=== PATIENT | female | born 1935 | race Caucasian/White ===

== ENCOUNTER → 2017-02-12 | Outpatient (REF) | payer MEDICARE ==
[~2017-02-12] MED LIST: /PREG50CA PO; /WARF25TA OR; /WARF25TA PO; /WARF5TA OR; ACET65TA OR; ASPI81TA83 OR; ASPI81TA85 PO; CELE1CAP4 PO; CIPR500T4 OR; COUM2.5T17 PO; LYRI75CA PO; MOBIC PO; MULT1TAB10 PO; PERC5TAB PO; PERC5TAB12 PO; PERC5TAB8 OR; PERC7.5T8 OR; PERCOCET PO; TYLE325T5 PO
[2017-02-12 18:07] LABS: BASO % 0.5 % (0.0-1.0); EOS # 0.1 K/mm3 (0.0-0.50); EOS % 1.9 % (0.0-3.0); LARGE UNSTAINED CELL # 0.1 K/mm3 (0.0-0.4); LARGE UNSTAINED CELL % 2.4 % (0.0-4.0); LYMPH # 1.9 K/mm3 (1.5-4.5); LYMPH % 32.6 % (24.0-44.0); MEAN CORPUSCULAR HEMOGLOBIN 32.1 pg (27.0-33.0); MEAN CORPUSCULAR VOLUME 97.2 fl (80.0-96.0); MONO # 0.4 K/mm3 (0.0-0.8); MONO % 6.6 % (0.0-5.0); PLATELET COUNT, AUTOMATED 209 k/mm3 (150-450); RED CELL DISTRIBUTION WIDTH 12.8 % (11.5-14.5); WHITE BLOOD COUNT 5.3 K/mm3 (4.0-10.0)
[2017-02-12 18:39] LABS: ALBUMIN 3.7 GM/DL (3.2-5.2); ALBUMIN/GLOBULIN RATIO 1.12 (1.00-1.93); ALKALINE PHOSPHATASE 89 U/L (45-117); ALT/SGPT 18 U/L (12-78); ANION GAP 5 MEQ/L (8-16); AST/SGOT 19 U/L (15-37); BILIRUBIN,TOTAL 0.4 MG/DL (0.2-1.0); BLOOD UREA NITROGEN 13 MG/DL (7-18); CALCIUM LEVEL 9.3 MG/DL (8.8-10.2); CARBON DIOXIDE LEVEL 32 MEQ/L (21-32); CHLORIDE LEVEL 104 MEQ/L (98-107); GLOMERULAR FILTRATION RATE > 60.0 (>32); GLUCOSE, FASTING 78 MG/DL (83-110); POTASSIUM SERUM 4.1 MEQ/L (3.5-5.1); SODIUM LEVEL 141 MEQ/L (136-145)
== END ==
LOC: M LABDRAW1 17:26
PROVIDERS: ATTEND Orthopaedic Surgery
DX: M16.11 Unilateral primary osteoarthritis, right hip (principal); Z79.899 Other long term (current) drug therapy

== ENCOUNTER → 2017-11-22 | Outpatient (CLI) | payer MEDICARE ==
[2017-11-22 10:40] LABS: HEMOGLOBIN 14.1 g/dl (12.0-15.5); MEAN CORPUSCULAR HEMOGLOBIN 32.3 pg (27.0-33.0); MEAN CORPUSCULAR HGB CONC 32.8 g/dl (32.0-36.5); MEAN CORPUSCULAR VOLUME 98.4 fl (80.0-96.0); PLATELET COUNT, AUTOMATED 236 10^3/uL (150-450); RED BLOOD COUNT 4.37 10^6/uL (4.00-5.40); RED CELL DISTRIBUTION WIDTH 13.6 % (11.5-14.5); WHITE BLOOD COUNT 6.4 10^3/uL (4.0-10.0)
[2017-11-22 10:49] LABS: INR 0.95; PROTHROMBIN TIME 12.8 SECONDS (12.4-14.5)
[2017-11-22 11:00] LABS: ERYTHROCYTE SEDIMENTATION RATE 13 mm/hr (0-30)
[2017-11-22 11:23] LABS: ALBUMIN 3.5 GM/DL (3.2-5.2); ALBUMIN/GLOBULIN RATIO 0.97 (1.00-1.93); ALKALINE PHOSPHATASE 93 U/L (45-117); ALT/SGPT 17 U/L (12-78); ANION GAP 2 MEQ/L (8-16); AST/SGOT 15 U/L (7-37); BILIRUBIN,TOTAL 0.3 MG/DL (0.2-1.0); BLOOD UREA NITROGEN 10 MG/DL (7-18); CALCIUM LEVEL 8.8 MG/DL (8.8-10.2); CARBON DIOXIDE LEVEL 33 MEQ/L (21-32); CHLORIDE LEVEL 106 MEQ/L (98-107); CREATININE FOR GFR 0.75 MG/DL (0.55-1.30); GLOMERULAR FILTRATION RATE > 60.0 (>32); GLUCOSE, FASTING 89 MG/DL (70-100); POTASSIUM SERUM 4.6 MEQ/L (3.5-5.1); SODIUM LEVEL 141 MEQ/L (136-145); TOTAL PROTEIN 7.1 GM/DL (6.4-8.2)
== END ==
LOC: M ADMPAT 08:49
DX: Z01.812 Encounter for preprocedural laboratory examination (principal); M16.11 Unilateral primary osteoarthritis, right hip; Z20.1 Contact with and (suspected) exposure to tuberculosis
CPT/HCPCS: 71046

== ENCOUNTER 2017-12-13 05:47 | Inpatient (IN) | payer MEDICARE ==
[2017-12-13] MEDS ORDERED: LIDOCAINE 1% MDV 20ML VIAL SQ (06:00)
[2017-12-13] MEDS: LR 1,000 ML IV ×3 (06:31→11:45)
[2017-12-13] MEDS ORDERED: fentaNYL 100 MCG/2 ML INJECTION (J3010) As Ordered (07:01)
[2017-12-13] MEDS ORDERED: PROPOFOL 200 MG/20 ML VIAL As Ordered ×2 (07:01→10:59)
[2017-12-13] MEDS ORDERED: MIDAZOLAM INJ 2 MG/2 ML VIAL (J2250) As Ordered (07:01)
[2017-12-13] MEDS ORDERED: BUPIVACAINE/DEXTROSE 0.75% 2 ML AMP As Ordered (07:06)
[2017-12-13] MEDS: EPINEPHrine INJ 1 MG/ML 1ML AMP As Ordered (07:20)
[2017-12-13] MEDS ORDERED: ePHEDrine SULFATE 25 MG/5 ML(5MG/ML) SYRINGE As Ordered (10:16)
[2017-12-13] MEDS: ceFAZolin 1GM INJ (J0690 PER 500MG) As Ordered (10:30)
[2017-12-13] MEDS: TRANEXAMIC ACID 100 MG/ML 10ML VIAL As Ordered (10:31)
[2017-12-13] MEDS ORDERED: PHENYLephrine HCL 500 MCG/5 ML (100MCG/ML) SYRINGE (J2370) As Ordered (10:33)
[2017-12-13] MEDS ORDERED: MORPHINE 1MG/ML IN 0.9% NACL 100ML IV BAG As Ordered (11:33)
[2017-12-13] MEDS ORDERED: NALBUPHINE HCL 10 MG/ML AMP (J2300) IV (11:45)
[2017-12-13] MEDS ORDERED: NALOXONE INJ 0.4 MG/1 ML VIAL (J2310) IV (11:45)
[2017-12-13] MEDS: MORPHINE 1MG/ML IN 0.9% NACL 100ML IV BAG IV (11:45)
[2017-12-13] MEDS ORDERED: ACETAMINOPHEN TAB 650MG DOSE (2X325MG) PO (11:45)
[2017-12-13] MEDS ORDERED: fentaNYL 100 MCG/2 ML INJECTION (J3010) IV (11:45)
[2017-12-13] MEDS ORDERED: ONDANSETRON 4MG/2ML VIAL (J2405) IV ×2 (11:45)
[2017-12-13] MEDS ORDERED: FLEET ENEMA PR (11:45)
[2017-12-13] MEDS ORDERED: PERCOCET 5MG/325MG TAB PO (11:45)
[2017-12-13] MEDS ORDERED: EPIDURAL/PCA KEYS XX (11:45)
[2017-12-13] MEDS ORDERED: diphenhydrAMINE INJ 50MG/ML VIAL (J1200) IV (11:45)
[2017-12-14] MEDS: LR 1,000 ML IV (01:03)
[2017-12-14] MEDS: ONDANSETRON 4MG/2ML VIAL (J2405) IV (03:37)
[2017-12-14] MEDS ORDERED: ONDANSETRON 4 MG TAB (S0181) PO (07:00)
[2017-12-14] MEDS ORDERED: PERCOCET 5MG/325MG TAB PO (07:00)
[2017-12-14 07:04] LABS: HEMATOCRIT 38.1 % (36.0-47.0); HEMOGLOBIN 12.9 g/dl (12.0-15.5); MEAN CORPUSCULAR HEMOGLOBIN 32.3 pg (27.0-33.0); MEAN CORPUSCULAR HGB CONC 33.9 g/dl (32.0-36.5); MEAN CORPUSCULAR VOLUME 95.3 fl (80.0-96.0); PLATELET COUNT, AUTOMATED 232 10^3/uL (150-450); RED CELL DISTRIBUTION WIDTH 13.2 % (11.5-14.5); WHITE BLOOD COUNT 11.9 10^3/uL (4.0-10.0)
[2017-12-14] MEDS: APIXABAN 2.5 MG TAB (ELIQUIS) PO ×2 (09:49→20:18)
[2017-12-14] MEDS: MOM 30ML SUSPENSION UDC PO (09:49)
[2017-12-14] MEDS: MULTIVITAMINS/MINERALS THERAP 1 TAB PO (09:50)
[2017-12-14] MEDS: SENOKOT S TAB PO ×2 (09:51→20:18)
[2017-12-14] MEDS: PERCOCET 5MG/325MG TAB PO (09:51)
[2017-12-14] MEDS: diltiaZEM **CD** 180 MG CAP PO (09:52)
[2017-12-14] MEDS: PANTOPRAZOLE 40MG TAB (PROTONIX) PO (09:52)
[2017-12-14] MEDS: ASPIRIN 81 MG ENTERIC TAB PO (09:52)
[2017-12-14] MEDS ORDERED: ACETAMINOPHEN 500 MG TAB PO (12:00)
[2017-12-14] MEDS: traMADol 50 MG TAB PO (16:10)
[2017-12-14] MEDS ORDERED: RIVAROXABAN 10 MG TAB (XARELTO) PO (18:00)
[2017-12-14] MEDS: ACETAMINOPHEN 500 MG TAB PO ×2 (18:21→23:29)
[2017-12-15] MEDS: ACETAMINOPHEN 500 MG TAB PO ×4 (05:52→23:57)
[2017-12-15 06:42] LABS: HEMATOCRIT 37.3 % (36.0-47.0); HEMOGLOBIN 12.3 g/dl (12.0-15.5); MEAN CORPUSCULAR HEMOGLOBIN 31.8 pg (27.0-33.0); MEAN CORPUSCULAR VOLUME 96.4 fl (80.0-96.0); PLATELET COUNT, AUTOMATED 209 10^3/uL (150-450); RED BLOOD COUNT 3.87 10^6/uL (4.00-5.40); RED CELL DISTRIBUTION WIDTH 13.3 % (11.5-14.5); WHITE BLOOD COUNT 12.6 10^3/uL (4.0-10.0)
[2017-12-15 07:00] LABS: ANION GAP 8 MEQ/L (8-16); BLOOD UREA NITROGEN 14 MG/DL (7-18); CALCIUM LEVEL 8.5 MG/DL (8.8-10.2); CARBON DIOXIDE LEVEL 30 MEQ/L (21-32); CHLORIDE LEVEL 101 MEQ/L (98-107); CREATININE FOR GFR 0.82 MG/DL (0.55-1.30); GLOMERULAR FILTRATION RATE > 60.0 (>32); GLUCOSE, FASTING 114 MG/DL (70-100); POTASSIUM SERUM 3.7 MEQ/L (3.5-5.1); SODIUM LEVEL 139 MEQ/L (136-145)
[2017-12-15] MEDS: SENOKOT S TAB PO ×2 (09:46→20:36)
[2017-12-15] MEDS: APIXABAN 2.5 MG TAB (ELIQUIS) PO ×2 (09:46→20:36)
[2017-12-15] MEDS: ASPIRIN 81 MG ENTERIC TAB PO (09:46)
[2017-12-15] MEDS: MOM 30ML SUSPENSION UDC PO (09:46)
[2017-12-15] MEDS: PANTOPRAZOLE 40MG TAB (PROTONIX) PO (09:46)
[2017-12-15] MEDS: MULTIVITAMINS/MINERALS THERAP 1 TAB PO (09:46)
[2017-12-15] MEDS: diltiaZEM **CD** 180 MG CAP PO (09:46)
[2017-12-15] MEDS: traMADol 50 MG TAB PO (09:47)
[2017-12-16] MEDS: ACETAMINOPHEN 500 MG TAB PO ×4 (05:14→23:45)
[2017-12-16] MEDS: PANTOPRAZOLE 40MG TAB (PROTONIX) PO (10:16)
[2017-12-16] MEDS: SENOKOT S TAB PO ×2 (10:16→20:07)
[2017-12-16] MEDS: MOM 30ML SUSPENSION UDC PO (10:16)
[2017-12-16] MEDS: ASPIRIN 81 MG ENTERIC TAB PO (10:16)
[2017-12-16] MEDS: traMADol 50 MG TAB PO (10:16)
[2017-12-16] MEDS: diltiaZEM **CD** 180 MG CAP PO (10:17)
[2017-12-16] MEDS: MULTIVITAMINS/MINERALS THERAP 1 TAB PO (10:17)
[2017-12-16] MEDS: APIXABAN 2.5 MG TAB (ELIQUIS) PO ×2 (10:17→20:07)
[2017-12-17] MEDS: traMADol 50 MG TAB PO (00:12)
[2017-12-17] MEDS: ACETAMINOPHEN 500 MG TAB PO ×2 (05:16→11:27)
[2017-12-17 06:22] LABS: HEMATOCRIT 32.6 % (36.0-47.0); HEMOGLOBIN 10.8 g/dl (12.0-15.5); MEAN CORPUSCULAR HEMOGLOBIN 31.8 pg (27.0-33.0); MEAN CORPUSCULAR HGB CONC 33.1 g/dl (32.0-36.5); MEAN CORPUSCULAR VOLUME 95.9 fl (80.0-96.0); PLATELET COUNT, AUTOMATED 238 10^3/uL (150-450); RED CELL DISTRIBUTION WIDTH 13.3 % (11.5-14.5); WHITE BLOOD COUNT 7.4 10^3/uL (4.0-10.0)
[2017-12-17 06:39] LABS: ANION GAP 6 MEQ/L (8-16); BLOOD UREA NITROGEN 19 MG/DL (7-18); CALCIUM LEVEL 8.3 MG/DL (8.8-10.2); CARBON DIOXIDE LEVEL 31 MEQ/L (21-32); CHLORIDE LEVEL 102 MEQ/L (98-107); CREATININE FOR GFR 0.67 MG/DL (0.55-1.30); GLOMERULAR FILTRATION RATE > 60.0 (>32); GLUCOSE, FASTING 102 MG/DL (70-100); POTASSIUM SERUM 4.1 MEQ/L (3.5-5.1); SODIUM LEVEL 139 MEQ/L (136-145)
[2017-12-17] MEDS: PANTOPRAZOLE 40MG TAB (PROTONIX) PO (08:56)
[2017-12-17] MEDS: ASPIRIN 81 MG ENTERIC TAB PO (08:56)
[2017-12-17] MEDS: APIXABAN 2.5 MG TAB (ELIQUIS) PO (08:56)
[2017-12-17] MEDS: diltiaZEM **CD** 180 MG CAP PO (08:57)
[2017-12-17] MEDS: MOM 30ML SUSPENSION UDC PO (08:57)
[2017-12-17] MEDS: SENOKOT S TAB PO (08:57)
[2017-12-17] MEDS: MULTIVITAMINS/MINERALS THERAP 1 TAB PO (08:57)
== END 2017-12-17 16:40 | disposition home or self-care (01) | DRG 470 ==
LOC: M OR 05:47 → M MS5PR 12:30
PROC: 0SR90JA Replacement of Right Hip Joint with Synthetic Substitute, Uncemented, Open Approach (ICD-10-PCS; principal; 2017-12-13 07:30)
DX: M16.11 Unilateral primary osteoarthritis, right hip (principal); I48.91 Unspecified atrial fibrillation; K21.9 Gastro-esophageal reflux disease without esophagitis; Z88.2 Allergy status to sulfonamides; Z91.048 Other nonmedicinal substance allergy status; Z79.899 Other long term (current) drug therapy; Z96.653 Presence of artificial knee joint, bilateral; Z79.82 Long term (current) use of aspirin

== ENCOUNTER 2020-08-15 10:23 | Emergency (ER) | payer MEDICARE ==
[~2020-08-15] VITALS: Ht 160 cm; Wt 63.6 kg
[~2020-08-15 10:23] MED LIST changes: -/PREG50CA PO; -/WARF25TA OR; -/WARF25TA PO; -/WARF5TA OR; -ASPI81TA85 PO; +ASPI81TA86 PO; +CART180C3; +COUM1TAB17 OR; +COUM1TAB18 OR; +COUM1TAB18 PO; +ELIQ2.5T PO; +ENOX80IN3; +FIBE625T22 PO; +FISH1000 PO; +LYRI50CA PO; +OXYC1TAB23 PO; +PANT40TA29; -PERCOCET PO; +TRAM50TA2 PO; +ULTR50TA8 PO
--- OUTSIDE RECORDS SUMMARY | 2020-08-15 10:32 | CCD | Continuity of Care Document ---
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 Onset: Other osteoporosis without current pathological fracture Janay Perrin FNP-BC Onset: 04/04/2018 Anxiety Sarina Nieves PA Onset: 06/12 Gastroesophageal reflux disease Sarina Nieves PA Onset: 06/12/2019 Paroxysmal atrial fibrillation Sarina Nieves PA O nset: 03/01/2020 Dementia Sarina Nieves PA Onset: 06/24 Social History Type Date Description Comments Sex Unknown ETOH Use Denies alcohol use Tobacco Use Start: Unknown Patient has never smoked Recreational Drug Use Never Used Drugs Allergies, Adverse Reactions, Alerts Active Allergies Reaction Severity Comments Date Sulfa Drugs Urticaria 12/11/2010 Adhesives adhesives tapes rash 12/11/2010 Medications Active Medications SIG Qnty Indications Ordering Provide r Date Eliquis 2.5mg Tablets take one tablet by mouth in the Am and one tablet by mouth in the PM 30tabs Augusto Akins D.O., FAAFP 06/24/2020 Metoprolol Succinate ER 25mg Tablets ER 24HR one tab by mouth daily 30tabs Delbert Jerez, FAAFP 04/09/[address] 1 by mouth once daily 30caps Augusto Akins D.O., FAAFP Fluoxetine HCL 10mg Capsules take one capsule by mouth every day 30caps Augusto Akins D.O. , FAAFP 03/17/2019 Tylenol Extra Strength For Arthritis Maria Luisa n 500mg Tablets prn use Unknown Calcium Citrate 333mg Tablets 1 tab by mouth once a day with magnesium and zinc Unknown Medications Administered in Office Medication SIG Qnty Indications Ordering Provider Date Injection (SC)/(Im) Injection Janay Cohen FNP- 03/01/2019 Injection (SC)/(Im) Injection Janay Cohen FNPBg 05/26/2017 Injection (SC)/(Im) Injection Susie Summers, [facility] 03/25/2011 Immunizations CPT Code Status Date Vaccine Lot # 27101 Given 03/01/2019 Influenza Virus Vaccine, Quadrivalent, Slit Virus, Im Use 3Y & Up [id number] 93317 Given 03/15/2018 Influenza Virus Vaccine, Quadrivalent, Slit Virus, Im Use 3Y & Up [id number] 57639 Given 03/25/2011 Influenza Vaccin e (Fluzone) 3Yrs Of Age Or Older Medicare Plans 12542 Given 03/25/2011 Influenza Virus Vac. Split Virus Individuals 3 Years And Above [id number] Vital Signs Date Vital Result Comment 06/24/2020 2:08pm BP Systolic 138 mmHg BP Diastolic 72 mmHg Body Temperature 97.8 F Heart Rate 57 /min Respiratory Rate 18 /min Height 62 inches 5'2" Weight 141.00 lb [place] Body Weight 110 lb BMI (Body Mass Index) 25.8 kg/m2 O2 % BldC Oximetry 97 % (AT Rest), (Room Air ) 05/13/2020 10:47am BP Systolic 138 mmHg BP Diastolic 60 mmHg Body Temperature 97.7 F Heart Rate 61 /min Respiratory Rate 17 /min Height 62 inches 5'2" Weight 150.00 lb [place] Body Weight 110 lb BMI (Body Mass Index) 27.4 kg/m2 O2 % BldC Oximetry 96 % (AT Rest), (Room Air ) Results Test Acquired Date Facility Test Result H/L Range Note Laboratory test finding 01/04/2020 [facility] TSH 0.656 ulU/mL 0.60 - 4.8 CBC 01/04/2020 [facility] WBC 5.2 10E3/uL 4.1 - 10.9 1 RBC 4.30 10E6/uL 4.20 - 6.30 HGB 13.3 g/dL 12.0 - 18.0 HCT 41.0 % 37.0 - 51.0 MCV 95.3 fL 80.0 - 97.0 MCH 30.9 pg 26.0 - 32.0 MCHC 32.4 g/dL 31.0 - 36.0 PLT 218 10E3/uL 140 - 440 RDW-CV 15.1 % High 11.5 - 14.5 Lym% 28.0 % 10.0 - 58.5 Neut% 58.7 % 37.0 - 92.0 MXD% 13.3 % 0.1 - 24.0 Lym# 1.5 10E3/uL 0.6 - 4.1 Neut# 3.0 % 2.0 - 7.8 MXD# 0.7 10E3/uL 0.0 - 1.8 MPV 10.6 fL 9.0 - 13.0 CMP 01/04/2020 [facility] Glu 87 mg/dL 70 - 110 BUN 15 mg/dL 8 - 23 Creat 0.7 mg/dL 0.5 - 1.0 BUN/Creatinine Ratio 20.3 CALC Na 139 mmol/L 136 - 145 K 4.4 mmol/L 3.5 - 5.1 CL 103.9 mmol/L 98.0 - 107.0 Co2 24.8 mmol/L 22.0 - 29.0 CA 9.6 mg/dL 8.6 - 10.2 TP 6.8 g/dL 6.6 - 8.7 Alb 4.1 g/dL 3.4 - 4.8 A/G Ratio 1.5 CALC Globulin 2.7 CALC Alp 93.5 U/L 35 - 129 Alt (SGPT) 9 U/L 0 - 41 Ast (Sgot) 16 U/L 0 - 40 Tbili 0.41 mg/dL 0.0 - 1.2 Osmolality-Calculated 277.4 CALC Anion Gap 15 mmol/L eGFR 92 # Calc 2 eGFR Non-Afr. Welsh 80 # Calc 3 1 NORMAL RANGES Age WBC RBC HGB HCT MCV PLT Adult M 4.1-10.9 4.20-6.30 12.0-18.0 37.0-51.0 80-97 140-440 Adult F 4.1-10.9 4.04-5.48 12.0-18.0 37.0-51.0 80-97 140-440 0 -1 Yr 5.0-20.0 3.9-5.9 15-18 MV: 44 MV: 91 MV: 277 2-9 Yr. 6.0-17.0 3.8-5.4 11-13 MV: 37 MV: 78 MV: 300 10 Yrs. 5.0-13.0 3.8-5.4 12-15 MV: 39 MV: 80 MV: 250 NOTE: * FOR ADULT BLACK MALES AND FEMALES, NORMAL WBC IS 2.9-7.7 K/ML * FOR ADULT BLACK MALES AND FEMALES, NORMAL RBC,HGB, AND HCT IS 5% LESS SOURCE FOR DATA: [employer] 1800 OPERATION MANUAL( AUTOMATED BLOOD COUNTS AND DIFF.) APPENDIX B-3 CHRONIC KIDNEY DISEASE STAGING PER NKF: MALE GFR INTERPRETATION: 20-49 YRS: >60 mL/min Normal 50-59 YRS: >56 mL/min Normal 60-69 YRS: >49 mL/min Normal 70-79 YRS: >42 mL/min Normal 80 and above >35 mL/min Normal FEMALE GRF INTERPRETATION: 20-39 YRS: >60 mL/min Normal 40-49 YRS: >58 mL/min Normal 50-59 YRS: >51 mL/min Normal 60-69 YRS: >45 mL/min Normal 70-79 YRS: >39 mL/min Normal 80 and above >32 mL/min Normal 2 CKD-EPI 3 CKD-EPI Procedures Date Code Description Status 06/24/2020 42514 Electrocardiogram Complete Compl eted 05/13/2020 44874 Electrocardiogram Complete Compl eted 04/09/2020 68535 Electrocardiogram Complete Compl eted 01/04/2020 54052 Electrocardiogram Complete Compl eted Medical Devices Description No Information Available Encounters Type Date Location Provider Dx Diagnosis Office Visit 06/24/2020 2:00p [place] [facility] Peace Nieves PA I48.20 Chronic atrial fibrillation, unspecified F02.80 Dementia in oth diseases [facility] elswhr w/o behavrl disturb Office Visit 05/13/2020 10:40a [facility] [facility] Peace Nieves PA I48.20 Chronic atrial fibrillation, unspecified R42 Dizziness and giddiness Office Visit 04/09/2020 11:00a [place] [facility] Rajesh Nieves PA Z00.01 Encounter for general adult medical exam w abnormal findings I48.20 Chronic atrial fibrillation, unspecified K21.9 Gastro-esophageal reflux dis ease without esophagitis Office Visit 01/04/2020 2:00p [place] [facility] Rajesh Nieves PA I48.20 Chronic atrial fibrillation, unspecified Assessments Date Code Description Provider 06/24/2020 I48.20 Chronic atrial fibrillation, uns pecified aSrina Nieves PA 06/24/2020 F02.80 Dementia Shola Nieves PA 05/13/2020 I48.20 Chronic atrial fibrillation, uns pecified Sarina Nieves PA 05/13/2020 R42 Dizziness Shola Nieves PA 04/09/2020 Z00.01 Encounter for genera l adult medical examination with abnormal findings Sarina Nieves PA 04/09/2020 I48.20 Chronic atrial fibrillation, uns pecified Sarina Nieves PA 04/09/2020 K21.9 Gastro-esophageal reflux disease without esophagitis Sarina Nieves PA 01/04/2020 I48.20 Chronic atrial fibrillation, uns pecified Sarina Nieves PA Plan of Treatment Future Appointment(s):* 07/08/2020 1:30 pm - Sarina Nieves PA at [facility] Functional Status Description No Information Available Mental Status Description No Information Available Referrals Refer to Reason for Referral Status Appt Date Chivo De Guzman M.D. eval and treat chronic a fib. not symptomati c. Sent 01/23/[address] [place] [address] [phone]
--- OUTSIDE RECORDS SUMMARY | 2020-08-15 10:32 | CCD | Continuity of Care Document ---
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 Onset: Other osteoporosis without current pathological fracture Janay Perrin FNP-BC Onset: 04/04/2018 Anxiety Sarina Nieves PA Onset: 06/12 Gastroesophageal reflux disease Sarina Nieves PA Onset: 06/12/2019 Paroxysmal atrial fibrillation Sarina Nieves PA O nset: 03/01/2020 Social History Type Date Description Comments Sex [...] one tab by mouth daily 30tabs Delbert Jerez., FAAFP 04/09/[address] 1 by mouth once daily 90caps Delbert Jerez.O., FAAFP Fluoxetine HCL 10mg Capsules take one [...] Provider Date Injection (SC)/(Im) Injection Janay Cohen [facility] 03/01/2019 Injection (SC)/(Im) Injection Janay Cohen [facility] 05/26/2017 Injection (SC)/(Im) Injection Susie Summers, [facility] 03/25/2011 Immunizations CPT Code Status Date Vaccine Lot # [id number] Given 03/01/2019 Influenza Virus Vaccine, Quadrivalent, Slit Virus, Im Use 3Y & Up [id number] 89417 Given 03/15/2018 Influenza Virus Vaccine, Quadrivalent, Slit Virus, Im Use 3Y & Up [id number] 34370 Given 03/25/2011 Influenza Vaccin e (Fluzone) 3Yrs Of Age Or Older Medicare Plans 05555 Given 03/25/2011 Influenza Virus Vac. Split Virus Individuals 3 Years And Above [id number] Vital Signs Date Vital Result Comment 06/24/2020 2:08pm BP Systolic 138 mmHg BP Diastolic 72 mmHg Body Temperature 97.8 F Heart Rate 57 /min Respiratory Rate 18 /min Height 62 inches 5'2" Weight 141.00 lb [place] Body Weight 110 lb BMI (Body Mass Index) 25.8 kg/m2 O2 % BldC Oximetry 97 % (AT Rest), (Room Air ) 05/13/2020 10:47am BP Systolic 138 mmHg BP Diastolic 60 mmHg Body Temperature 97.7 F Heart Rate 61 /min Respiratory Rate 17 /min Height 62 inches 5'2" Weight 150.00 lb [place] Body Weight 110 lb BMI (Body Mass [...] eGFR 92 # Calc 2 eGFR Non-Afr. Fijian 80 # Calc 3 1 NORMAL RANGES [...] HCT IS 5% LESS SOURCE FOR DATA: [employer] 1800 OPERATION MANUAL( AUTOMATED BLOOD COUNTS AND [...] 3 CKD-EPI Procedures Date Code Description Status 05/13/2020 98818 Electrocardiogram Complete Compl eted 04/09/2020 74992 Electrocardiogram Complete Compl eted 01/04/2020 95385 Electrocardiogram Complete Compl eted Medical Devices Description No Information Available Encounters Type Date Location Provider Dx Diagnosis Office Visit 05/13/2020 10:40a [place] [facility] Peace Nieves PA I48.20 Chronic atrial fibrillation, unspecified R42 Dizziness and giddiness Office Visit 04/09/2020 11:00a [place] [facility] Rajesh Nieves PA Z00.01 Encounter for general adult medical exam w abnormal findings I48.20 Chronic atrial fibrillation, unspecified K21.9 Gastro-esophageal reflux dis ease without esophagitis Office Visit 01/04/2020 2:00p [place] [facility] Rajesh Nieves PA I48.20 Chronic atrial fibrillation, unspecified Assessments Date Code Description Provider 05/13/2020 I48.20 Chronic atrial fibrillation, uns pecified [...] pecified Sarina Nieves PA Plan of Treatment No Information Available Functional Status Description No Information Available Mental Status Description No Information Available Referrals Refer to Reason for Referral Status Appt Date Chivo De Guzman M.D. eval and treat chronic a fib. not symptomati c. Sent 01/23/[address] [place] [address] [phone]
--- OUTSIDE RECORDS SUMMARY | 2020-08-15 10:32 | CCD | Continuity of Care Document ---
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 , FAAFP 03/17/2019 Eliquis 5mg Tablets take one tablet by mouth twice a day 60tabs Augusto Akins D.O., FAAFP 1 07/17/2017 Multivitamin Adult Tablets 1 by mouth every day OTC Janay Cohen FNP-BC 06/07/201 8 Vitamin D 2000Unit Capsules 1 by mouth once a day Unknown Tylenol Extra Strength For Arthritis Maria Luisa n 500mg Tablets prn use Unknown HM Super Vitamin B12 2500mcg Chewt abs 1 PO qd Unknown Medications Administered in Office Medication SIG Qnty Indications Ordering Provider Date Injection (SC)/(Im) Injection Janay Cohen [facility] 03/01/2019 Injection (SC)/(Im) Injection Janay Cohen [facility] 05/26/2017 Injection (SC)/(Im) Injection Susie Summers, [facility] 03/25/2011 Immunizations CPT Code Status Date Vaccine Lot # 72658 Given 03/01/2019 Influenza Virus Vaccine, Quadrivalent, Slit Virus, Im Use 3Y & Up [id number] 75473 Given 03/15/2018 Influenza Virus Vaccine, Quadrivalent, Slit Virus, Im Use 3Y & Up [id number] 36102 Given 03/25/2011 Influenza Vaccin e (Fluzone) 3Yrs Of Age Or Older Medicare Plans 57625 Given 03/25/2011 Influenza Virus Vac. Split Virus Individuals 3 Years And Above [id number] Vital Signs Date Vital Result Comment 05/13/2020 10:47am BP Systolic 138 mmHg BP Diastolic 60 mmHg Body Temperature 97.7 F Heart Rate 61 /min Respiratory Rate 17 /min Height 62 inches 5'2" Weight 150.00 lb [place] Body Weight 110 lb BMI (Body Mass Index) 27.4 kg/m2 O2 % BldC Oximetry 96 % (AT Rest), (Room Air ) 04/09/2020 10:56am BP Systolic 124 mmHg BP Diastolic 88 mmHg Body Temperature 97.3 F Heart Rate 92 /min Respiratory Rate 18 /min Height 62 inches 5'2" Weight 148.00 lb [place] Body Weight 110 lb BMI (Body Mass Index) 27.1 kg/m2 O2 % BldC Oximetry 92 % Results Test Acquired Date Facility Test Result [...] eGFR 92 # Calc 2 eGFR Non-Afr. [place] 80 # Calc 3 1 NORMAL RANGES [...] HCT IS 5% LESS SOURCE FOR DATA: [employer] 1800 OPERATION MANUAL( AUTOMATED BLOOD COUNTS AND [...] CKD-EPI Procedures Date Code Description Status 05/13/2020 61802 Electrocardiogram Complete Compl eted 04/09/2020 88658 Electrocardiogram Complete Compl eted 01/04/2020 29626 Electrocardiogram Complete Compl eted Medical Devices Description No Information Available Encounters Type Date Location Provider Dx Diagnosis Office Visit 05/13/2020 10:40a [facility] Peace Nieves PA I48.20 Chronic atrial fibrillation, unspecified R42 Dizziness and giddiness Office Visit 04/09/2020 11:00a [facility] Rajesh Nieves PA Z00.01 Encounter for general adult medical exam w abnormal findings I48.20 Chronic atrial fibrillation, unspecified K21.9 Gastro-esophageal reflux dis ease without esophagitis Office Visit 01/04/2020 2:00p [facility] Rajesh Nieves PA I48.20 Chronic atrial fibrillation, [...] Nieves PA Plan of Treatment Future Appointment(s):* 06/17/2020 10:40 am - Sraina Nieves PA at [facility] Functional Status Description No Information Available Mental Status Description No Information Available Referrals Refer to Reason for Referral Status Appt Date Chivo De Guzman M.D. eval and treat chronic a fib. not symptomati c. Sent 01/23/[address] [place] [address] [phone]
--- OUTSIDE RECORDS SUMMARY | 2020-08-15 10:32 | CCD | Continuity of Care Document ---
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 Split Virus Individuals 3 Years And Above [id number] Vital Signs Date Vital Result Comment 07/08/2020 1:45pm BP Systolic 126 mmHg BP Diastolic 72 mmHg Body Temperature 97.5 F Heart Rate 73 /min Respiratory Rate 16 /min Height 62 inches 5'2" Weight 146.00 lb [place] Body Weight 110 lb BMI (Body Mass Index) 26.7 kg/m2 O2 % BldC Oximetry 96 % (AT Rest), (Room Air ) 06/24/2020 2:08pm BP Systolic 138 mmHg BP Diastolic 72 mmHg Body Temperature 97.8 F Heart Rate 57 /min Respiratory Rate 18 /min Height 62 inches 5'2" Weight 141.00 lb [place] Body Weight 110 lb BMI (Body Mass Index) 25.8 kg/m2 O2 % BldC Oximetry 97 % (AT Rest), (Room Air ) Results Description No Information Available Procedures Date Code Description Status 06/24/2020 39206 Electrocardiogram Complete Compl eted 05/13/2020 78750 Electrocardiogram Complete Compl eted 04/09/2020 44593 Electrocardiogram Complete Compl eted Medical Devices Description No Information Available Encounters Type Date Location Provider Dx Diagnosis Office Visit 07/08/2020 1:30p [place] [facility] Barraclough, Samanth a M, PA I48.20 Chronic atrial fibrillation, unspecified F02.80 Dementia in oth diseases [facility] ssd elswhr w/o behavrl disturb Office Visit 06/24/2020 2:00p [place] [facility] Peace Nieves PA I48.20 Chronic atrial fibrillation, unspecified F02.80 Dementia in oth diseases [facility] ssd elswhr w/o behavrl disturb Office Visit 05/13/2020 10:40a [place] [facility] Peace Nieves PA I48.20 Chronic atrial fibrillation, unspecified R42 Dizziness and giddiness Office Visit 04/09/2020 11:00a [place] [facility] Rajesh Nieves PA Z00.01 Encounter for general adult medical exam w abnormal findings I48.20 Chronic atrial fibrillation, unspecified K21.9 Gastro-esophageal reflux dis ease without esophagitis Assessments Date Code Description Provider 07/08/2020 I48.20 Chronic atrial fibrillation, uns pecified Sarina Nieves PA 07/08/2020 F02.80 Dementia Shola Nieves PA 06/24/2020 I48.20 Chronic atrial fibrillation, uns pecified Sarina Nieves PA 06/24/2020 F02.80 Dementia Shola Nieves PA 05/13/2020 I48.20 Chronic atrial fibrillation, uns pecified Sarina Nieves PA 05/13/2020 R42 Dizziness Shola Nieves PA 04/09/2020 Z00.01 Encounter for genera l adult medical examination with abnormal findings Sarina Nieves PA 04/09/2020 I48.20 Chronic atrial fibrillation, uns pecified Sarina Nieves PA 04/09/2020 K21.9 Gastro-esophageal reflux disease without esophagitis Sarina Nieves PA Plan of Treatment No Information Available Functional Status Description No Information Available Mental Status Description No Information Available Referrals Description No Information Available
--- OUTSIDE RECORDS SUMMARY | 2020-08-15 10:33 | CCD ---
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 Name Role Phone Keily GUTIÉRREZ ORTHODONTIST Unavailable Unavailable Keily GUTIÉRREZ ORTHODONTIST Unavailable Unavailable Keliy GUTIÉRREZ ORTHODONTIST Unavailable Unavailable Keily GUTIÉRREZ ORTHODONTIST Unavailable Unavailable Keily GUTIÉRREZ ORTHODONTIST Unavailable Unavailable Keily GUTIÉRREZ ORTHODONTIST Unavailable Unavailable Keily GUTIÉRREZ ORTHODONTIST Unavailable Unavailable Keily GUTIÉRREZ ORTHODONTIST Unavailable Unavailable Keily GUTIÉRREZ ORTHODONTIST Unavailable Unavailable Keily GUTIÉRREZ ORTHODONTIST Unavailable Unavailable Keily GUTIÉRREZ ORTHODONTIST Unavailable Unavailable GUTIÉRREZKeily Grider ORTHODONTIST Unavailable Unavailable Keily GUTIÉRREZ ORTHODONTIST Unavailable Unavailable GUTIÉRREZKeily Grider ORTHODONTIST Unavailable Unavailable Keily GUTIÉRREZ ORTHODONTIST Unavailable Unavailable Keily GUTIÉRREZ ORTHODONTIST Unavailable Unavailable Keily GUTIÉRREZ ORTHODONTIST Unavailable Unavailable Keily GUTIÉRREZ ORTHODONTIST Unavailable Unavailable Keily GUTIÉRREZ ORTHODONTIST Unavailable Unavailable Keily GUTIÉRREZ ORTHODONTIST Unavailable Unavailable Keily GUTIÉRREZ ORTHODONTIST Unavailable Unavailable Keily GUTIÉRREZ ORTHODONTIST Unavailable Unavailable Keily GUTIÉRREZ ORTHODONTIST Unavailable Unavailable Keily GUTIÉRREZ ORTHODONTIST Unavailable Unavailable Keily GUTIÉRREZ ORTHODONTIST Unavailable Unavailable GUTIÉRREZ, M MEIR ORTHODONTIST Unavailable Unavailable GUTIÉRREZ, M MEIR ORTHODONTIST Unavailable Unavailable GUTIÉRREZ, M MEIR ORTHODONTIST Unavailable Unavailable GUTIÉRREZ, M MEIR ORTHODONTIST Unavailable Unavailable GUTIÉRREZ, M MIER ORTHODONTIST Unavailable Unavailable GUTIÉRREZ, M MEIR ORTHODONTIST Unavailable Unavailable GUTIÉRREZ, M MEIR ORTHODONTIST Unavailable Unavailable GUTIÉRREZ, M MEIR ORTHODONTIST Unavailable Unavailable GUTIÉRREZ, M MEIR ORTHODONTIST Unavailable Unavailable GUTIÉRREZ, M MEIR ORTHODONTIST Unavailable Unavailable GUTIÉRREZ, M MEIR ORTHODONTIST Unavailable Unavailable GUTIÉRREZ, M MEIR ORTHODONTIST Unavailable Unavailable GUTIÉRREZ, M MEIR ORTHODONTIST Unavailable Unavailable GUTIÉRREZ, M MEIR ORTHODONTIST Unavailable Unavailable GUTIÉRREZ, M MEIR ORTHODONTIST Unavailable Unavailable GUTIÉRREZ, M MEIR ORTHODONTIST Unavailable Unavailable GUTIÉRREZ, M MEIR ORTHODONTIST Unavailable Unavailable GUTIÉRREZ, M MEIR ORTHODONTIST Unavailable Unavailable GUTIÉRREZ, M MEIR ORTHODONTIST Unavailable Unavailable GUTIÉRREZ, M MEIR ORTHODONTIST Unavailable Unavailable GUTIÉRREZ, M MEIR ORTHODONTIST Unavailable Unavailable GUTIÉRREZ, M MEIR ORTHODONTIST Unavailable Unavailable GUTIÉRREZ, M MEIR ORTHODONTIST Unavailable Unavailable GUTIÉRREZ, M MEIR ORTHODONTIST Unavailable Unavailable GUTIÉRREZ, M MEIR ORTHODONTIST Unavailable Unavailable GUTIÉRREZ, M MEIR ORTHODONTIST Unavailable Unavailable GUTIÉRREZ, M MEIR ORTHODONTIST Unavailable Unavailable GUTIÉRREZ, M MEIR ORTHODONTIST Unavailable Unavailable GUTIÉRREZ, M MEIR ORTHODONTIST Unavailable Unavailable GUTIÉRREZ, M MEIR ORTHODONTIST Unavailable Unavailable GUTIÉRREZ, M MEIR ORTHODONTIST Unavailable Unavailable GUTIÉRREZ, M MEIR ORTHODONTIST Unavailable Unavailable GUTIÉRREZ, M MEIR ORTHODONTIST Unavailable Unavailable Carissa GUZMAN MD Unavailable Unavailable Carissa GUZMAN MD Unavailable Unavailable Carissa GUZMAN MD Unavailable Unavailable Carissa GUZMAN MD Unavailable Unavailable Carissa GUZMAN MD Unavailable Unavailable Carissa GUZMAN MD Unavailable Unavailable Carissa GUZMAN MD Unavailable Unavailable Carissa GUZMAN MD Unavailable Unavailable Carissa GUZMAN MD Unavailable Unavailable Carissa GUZMAN MD Unavailable Unavailable Carissa GUZMAN MD Unavailable Unavailable Carissa GUZMAN MD Unavailable Unavailable Carissa GUZMAN MD Unavailable Unavailable Barraclough, Sarina PA Unavailable Unavailable Barraclough, Sarina PA Unavailable Unavailable Barraclough, Sarina PA Unavailable Unavailable Barraclough, Sarina PA Unavailable Unavailable Barraclough, Sarina PA Unavailable Unavailable Barraclough, Sarina PA Unavailable Unavailable Delbert Young JRlie MD Unavailable Unavailable Hector JR, D Angelina LANDA Unavailable Unavailable Hector JR, D Angelina LANDA Unavailable Unavailable Hector JR, D Angelina LANDA Unavailable Unavailable Hector JR, D Angelina LANDA Unavailable Unavailable Hector JR, D Angelina LANDA Unavailable Unavailable Hector JR, D Angelina LANDA Unavailable Unavailable Hector JR, D Angleina LANDA Unavailable Unavailable Hector JR, D Angelina LANDA Unavailable Unavailable Hector JR, D Angelina LANDA Unavailable Unavailable Hector JR, D Angelina LANDA Unavailable Unavailable Hector JR, D Angelina LANDA Unavailable Unavailable Hector JR, D Angelina LANDA Unavailable Unavailable Hector JR, D Angelina LANDA Unavailable Unavailable Hector JR, D Angelina LANDA Unavailable Unavailable Hector JR, D Angelina LANDA Unavailable Unavailable Hector JR, D Angelina LANDA Unavailable Unavailable Hector JR, D Angelina LANDA Unavailable Unavailable Hector JR, D Angelina LANDA Unavailable Unavailable Hector JR, D Angelina LANDA Unavailable Unavailable Hector JR, D Angelina LANDA Unavailable Unavailable Hector JR, D Angelina LANDA Unavailable Unavailable Hector JR, D Angelina LANDA Unavailable Unavailable Hector JR, D Angelina LANDA Unavailable Unavailable Hector JR, D Angelina LANDA Unavailable Unavailable Hector JR, D Angelina LANDA Unavailable Unavailable Hector JR, D Angelina LANDA Unavailable Unavailable Hector JR, D Angelina LANDA Unavailable Unavailable Hector JR, D Angelina LANDA Unavailable Unavailable Hector JR, D Angelina LANDA Unavailable Unavailable Hector JR, D Angelina LANDA Unavailable Unavailable Hector JR, D Angelina LANDA Unavailable Unavailable Hector JR, D Angelina LANDA Unavailable Unavailable Hector JR, D Angelina LANDA Unavailable Unavailable Hector JR, D Angelina LANDA Unavailable Unavailable Hector JR, D Angelina LANDA Unavailable Unavailable Hector JR, D Angelina LANDA Unavailable Unavailable Hector JR, D Angelina LANDA Unavailable Unavailable Hector JR, D Angelina LANDA Unavailable Unavailable Hector JR, D Angelina LANDA Unavailable Unavailable Hector JR, D Angelina LANDA Unavailable Unavailable Hector JR, D Angleina LANDA Unavailable Unavailable Hector JR, D Angelina LANDA Unavailable Unavailable Hector JR, D Angelina LANDA Unavailable Unavailable Hector JR, D Angelina LANDA Unavailable Unavailable Hector JR, D Angelina LANDA Unavailable Unavailable Hector JR, D Angelina LANDA Unavailable Unavailable Hector JR, D Angelina LANDA Unavailable Unavailable Hector JR, D Angelina LANDA Unavailable Unavailable Hector JR, D Angelina LANDA Unavailable Unavailable Hector JR, D Angelina LANDA Unavailable Unavailable Hector JR, D Angelina LANDA Unavailable Unavailable Hector JR, D Angelina LANDA Unavailable Unavailable Hector JR, D Angelina LANDA Unavailable Unavailable Hector JR, D Angelina LANDA Unavailable Unavailable Hector JR, D Angelina LANDA Unavailable Unavailable Hector JR, D Angelina LANDA Unavailable Unavailable Hector JR, D Angelina LANDA Unavailable Unavailable Hector JR, D Angelina LANDA Unavailable Unavailable Hector JR, D Angelina LANDA Unavailable Unavailable Hector JR, D Angelina LANDA Unavailable Unavailable Hector JR, D Angelina LANDA Unavailable Unavailable Hector JR, D Angelina LANDA Unavailable Unavailable Hector JR, D Angelina LANDA Unavailable Unavailable Carissa GUZMAN MD Unavailable Unavailable Carissa GUZMAN MD Unavailable Unavailable Carissa GUZMAN MD Unavailable Unavailable Carissa GUZMAN MD Unavailable Unavailable Carissa GUZMAN MD Unavailable Unavailable Carissa GUZMAN MD Unavailable Unavailable Carissa GUZMAN MD Unavailable Unavailable Carissa GUZMAN MD Unavailable Unavailable Carissa GUZMAN MD Unavailable Unavailable Carissa GUZMAN MD Unavailable Unavailable Carissa GUZMAN MD Unavailable Unavailable Carissa GUZMAN MD Unavailable Unavailable Carissa GUZMAN MD Unavailable Unavailable Re-disclosure Warning The records that you are about to access may contain information from federally-assisted alcohol or drug abuse programs. If such information is present, then the following federally mandated warning applies: This information has been disclosed to you from records protected by federal confidentiality rules (42 CFR part 2). The federal rules prohibit you from making any further disclosure of this information unless further disclosure is expressly permitted by the written consent of the person to whom it pertains or as otherwise permitted by 42 CFR part 2. A general authorization for the release of medical or other information is NOT sufficient for this purpose. The Federal rules restrict any use of the information to criminally investigate or prosecute any alcohol or drug abuse patient.The records that you are about to access may contain highly sensitive health information, the redisclosure of which is protected by Article 27-F of the [facility] Public Health law. If you continue you may have access to information: Regarding HIV / AIDS; Provided by facilities licensed or operated by the [facility] Office of Mental Health; or Provided by the [facility] Office for People With Developmental Disabilities. If such information is present, then the following [facility] mandated warning applies: This information has been disclosed to you from confidential records which are protected by state law. State law prohibits you from making any further disclosure of this information without the specific written consent of the person to whom it pertains, or as otherwise permitted by law. Any unauthorized further disclosure in violation of state law may result in a fine or mcfp sentence or both. A general authorization for the release of medical or other information is NOT sufficient authorization for further disc losure. Allergies and Adverse Reactions Type Description Substance Reaction Status Data Source(s ) ENVIRONMENTAL adhesive tape adhesive tape RASH [facility] Drug allergy TRAMADOL TRAMADOL MAKES HER GO CRAZY COMBATIVE [facility] Family History Family Member Name Family Member Gender Family Member Status Date o f Status Description Data Source(s) Unknown Female Problem [facility] ([facility]) Unknown Female Problem [facility] ([facility]) Unknown Female Problem [facility] ([facility]) Unknown Female Problem [facility] ([facility]) Encounters Encounter Providers Location Date Indications Data Source(s ) Outpatient Attender: Angelina Lealsultant: MEIR VILLEGAS NP 08/10/2020 08:40:00 AM EST - 08/10/2020 09:40:00 AM [facility] Patient discharged. Outpatient Attender: Angelina Mckeonant: MEIR VILLEGAS NP 08/08/2020 02:02:42 PM EST - 08/15/2020 09:26:00 AM [facility] Patient discharged. Outpatient Attender: Angelina Mckeonant: MEIR VILLEGAS NP 08/08/2020 01:58:08 PM EST - 08/12/2020 12:33:00 PM EST [facility] Patient discharged. Outpatient Attender: Sarina Clarkekyra FINLEY [place] Kadeem ce 07/08/2020 12:30:00 PM EST [facility] ([facility] Outpatient Attender: Sarina Clarkekyra FINLEY [place] K[place] ce 06/24/2020 01:00:00 PM EST [facility] ([facility] Outpatient Attender: Sarina Lizbeth FINLEY [place] Kadeem ce 05/13/2020 09:40:00 AM EST [facility] ([facility] Outpatient Attender: Sarina Lizbeth FINLEY [place] Kadeem ce 04/09/2020 11:00:00 AM EDT [facility] ([facility] Outpatient Attender: JESSIE GUZMAN MDConsultant: MEIR Grider NP 01/31/2020 01:04:00 PM EDT - 01/31/2020 01:04:00 PM EDT [facility] Outpatient Attender: [facility]ra [facility] 01/04/2020 02:00:00 PM EDT [facility] ([facility] Outpatient Attender: JESSIE GUZMAN MDConsultant: MEIR Grider NP 08/02/2019 12:46:00 PM EST - 08/02/2019 12:46:00 PM EST [facility] Outpatient Attender: JESSIE GUZMAN MD [facility] 08/02/2019 1 2:00:00 PM EST [facility] ([facility]) Medications Medication Brand Name Start Date Product Form Dose Route Admi nistrative Instructions Pharmacy Instructions Status Indications Reaction Description Data Source(s) apixaban 2.5 MG Oral Tablet [Eliquis] Eliquis 06/24/2020 12:00:00 AM EST ORAL active [facility] ([facility] Omeprazole 20 MG Delayed Release Oral Capsule Omeprazole 04/09/2020 12:00:00 AM EDT ORAL active [facility] ([facility] 24 HR metoprolol succinate 25 MG Extended Release Oral Tablet Metoprolol Succinate ER 04/09/2020 12:00:00 AM EDT ORAL active [facility] ([facility] 24 HR Diltiazem Hydrochloride 180 MG Extended Release Oral Capsule Diltiazem HCL ER Coated Beads 09/11/2019 12:00:00 AM EDT ORAL active [facility] ([facility] Insurance Providers Payer name Policy type / Coverage type Policy ID Covered republican ID Covered republican's relationship to linares Policy Linares Plan Information MEDICARE COMPLETE [id number] SP [id number] [employer] [facility] MEDICARE O/P [id number] 18 [id number] MEDICARE PART A [facility] [id number] 18 [id number] MEDICARE PART A [facility] UNAVAILABLE 18 UNAVAILABLE [facility] [id number] 18 [id number] [facility] MEDICARE COMPLETE -PHYS [id number] 18 [id number] MEDICARE PART A -O/P [id number] 18 [id number] [employer] [facility] MEDICARE O/P [id number] 18 [id number] [facility] ([facility]) Commercial [id number] Self [id number] [employer] () Workers Compensation [id number] Self [id number] Special Funds-Dew () Workers Compensation [id number] Self [id number] [facility] Medigap Part B [id number] Self [id number] MEDICARE [id number] SP [id number] A MEDICARE COMPLETE-[facility] O [id number] S [id number] MEDICARE COMPLETE [id number] SP [id number] MEDICARE COMPLETE [id number] SP [id number] MEDICARE COMPLETE-[facility] O [id number] S [id number] [facility] ([facility]) Commercial [id number] Self [id number] [facility] Medigap Part B Self [employer] ([facility]) Commercial Self SPECIAL FUNDS O [id number] S [id number] [employer]) Workers Compensation Self Special Funds-Dew () Workers Compensation Self WORKMENS COMP AND NO FAULT OTHER -O/P [id number] 18 [id number] SPECIAL FUNDS CONSERVATION-DEW [id number] SP [id number] SPECIAL FUNDS CONSERVATION-DEW [id number] SP [id number] Problems, Conditions, and Diagnoses Code Display Name Description Problem Type Effective Dates Data Source(s) 48372171 Dementia Dementia Problem 06/24/2020 12:00:00 AM ES T [facility] ([facility] [id number] Paroxysmal atrial fibrillation Paroxysmal atrial fibri llation Problem 03/01/2020 12:00:00 AM EDT [facility] ([facility] ) [id number] Encounter for other preprocedural examin ation Encounter for other preprocedural examination Diagnosis 08/10/2020 08:40:00 AM [facility] Z1152 ENCOUNTER FOR SCREENING FOR COVID-19 ENCOUNTER F OR SCREENING FOR COVID-19 Diagnosis 08/10/2020 08:40:00 AM [facility] R99 Ill-defined and unknown cause of mortali ty Ill-defined and unknown cause of mortality Diagnosis 01/31/2020 01:04:00 PM EDT [facility] [id number] Personal history of other malignant neop lasm of skin Personal history of other malignant neoplasm of skin Diagnosis 08/02/2019 12:46:00 PM [facility] Surgeries/Procedures Procedure Description Date Indications Data Source(s) Electrocardiogram Complete 06/24/2020 12:00:00 AM EST [facility] ([facility] Electrocardiogram Complete 05/13/2020 12:00:00 AM EST [facility] ([facility] Electrocardiogram Complete 04/09/2020 12:00:00 AM EDT [facility] ([facility] Electrocardiogram Complete 01/04/2020 12:00:00 AM EDT [facility] ([facility] Results ID Date Data Source [id number] 08/10/2020 07:05:00 AM EST [facility] Name Value Range Interpretation Code Description Data Cindi rce(s) Supporting Document(s) SARS coronavirus 2 RNA Not Detected [facility] [place] This lab was ordered by [facility] anil and reported by [facility]. ID Date Data Source [id number] 08/11/2020 01:13:00 PM [facility] Name Value Range Interpretation Code Description Data Cindi rce(s) Supporting Document(s) SARS-CoV-2, SAURABH Not Detected Not Detected [facility] This nucleic acid amplification test was developed and its performancecharacteristics determined by [employer]. Nucleic acidamplification tests include RT-PCR and TMA. This test has not beenFDA cleared or approved. This test has been authorized by FDA underan Emergency Use Authorization (EUA). This test is only authorizedfor the duration of time the declaration that circumstances existjustifying the authorization of the emergency use of in vitrodiagnostic tests for detection of SARS-CoV-2 virus and/or diagnosisof COVID-19 infection under section 564(b)(1) of the Act, 21 U.S.C.360bbb-3(b) (1), unless the authorization is terminated or revokedsooner.When diagnostic testing is negative, the possibility of a falsenegative result should be considered in the context of a patient'srecent exposures and the presence of clinical signs and symptomsconsistent with COVID- 19. An individual without symptoms of COVID-19and who is not shedding SARS-CoV-2 virus would expect to have anegative (not detected) result in this assay. ID Date Data Source [id number] 01/04/2020 02:10:00 PM EDT [facility] ([facility] Name Value Range Interpretation Code Description Data Cindi rce(s) Supporting Document(s) Glu 87 mg/dL 70-110 [facility] NORMAL RANGES Age WBC RBC HGB HCT [...] HCT IS 5% LESS SOURCE FOR DATA: Retewi 1800 OPERATION MANUAL( AUTOMATED BLOOD COUNTS AND [...] Normal 80 and above >32 mL/min Normal BUN 15 mg/dL 8- [facility] ([facility] NORMAL RANGES Age WBC RBC HGB HCT [...] HCT IS 5% LESS SOURCE FOR DATA: [employer]i 1800 OPERATION MANUAL( AUTOMATED BLOOD COUNTS AND [...] Normal 80 and above >32 mL/min Normal Creat 0.7 mg/dL 0.5-1.0 [facility] ([facility] NORMAL RANGES Age WBC RBC HGB HCT [...] HCT IS 5% LESS SOURCE FOR DATA: [employer]i 1800 OPERATION MANUAL( AUTOMATED BLOOD COUNTS AND [...] Normal 80 and above >32 mL/min Normal Na 139 mmol/L 136-145 [facility] NORMAL RANGES Age WBC RBC HGB HCT [...] HCT IS 5% LESS SOURCE FOR DATA: [employer]i 1800 OPERATION MANUAL( AUTOMATED BLOOD COUNTS AND [...] Normal 80 and above >32 mL/min Normal BUN/Creatinine Ratio 20.[address] [facility] ([facility] NORMAL RANGES Age WBC RBC HGB HCT [...] HCT IS 5% LESS SOURCE FOR DATA: [employer]i 1800 OPERATION MANUAL( AUTOMATED BLOOD COUNTS AND [...] Normal 80 and above >32 mL/min Normal Co2 24.8 mmol/L 22.0-29.0 [facility] ([facility] NORMAL RANGES Age WBC RBC HGB HCT [...] HCT IS 5% LESS SOURCE FOR DATA: [employer]i 1800 OPERATION MANUAL( AUTOMATED BLOOD COUNTS AND [...] Normal 80 and above >32 mL/min Normal K 4.4 mmol/L 3.5-5.1 [facility] ([facility] NORMAL RANGES Age WBC RBC HGB HCT [...] HCT IS 5% LESS SOURCE FOR DATA: [employer] DYN 1800 OPERATION MANUAL( AUTOMATED BLOOD COUNTS AND [...] Normal 80 and above >32 mL/min Normal CL 103.9 mmol/L 98.0-107.0 [facility] ([facility] NORMAL RANGES Age WBC RBC HGB HCT [...] HCT IS 5% LESS SOURCE FOR DATA: [employer]i 1800 OPERATION MANUAL( AUTOMATED BLOOD COUNTS AND [...] Normal 80 and above >32 mL/min Normal TP 6.8 g/dL 6.6-8.7 [facility] NORMAL RANGES Age WBC RBC HGB HCT [...] HCT IS 5% LESS SOURCE FOR DATA: [employer]i 1800 OPERATION MANUAL( AUTOMATED BLOOD COUNTS AND [...] Normal 80 and above >32 mL/min Normal CA 9.6 mg/dL 8.6-10.2 [facility] NORMAL RANGES Age WBC RBC HGB HCT [...] HCT IS 5% LESS SOURCE FOR DATA: [employer]i 1800 OPERATION MANUAL( AUTOMATED BLOOD COUNTS AND [...] Normal 80 and above >32 mL/min Normal Alb 4.1 g/dL 3.4-4.8 [facility] NORMAL RANGES Age WBC RBC HGB HCT [...] HCT IS 5% LESS SOURCE FOR DATA: [employer]i 1800 OPERATION MANUAL( AUTOMATED BLOOD COUNTS AND [...] Normal 80 and above >32 mL/min Normal A/G Ratio 1.5 [facility] ([facility] NORMAL RANGES Age WBC RBC HGB HCT [...] HCT IS 5% LESS SOURCE FOR DATA: [employer]i 1800 OPERATION MANUAL( AUTOMATED BLOOD COUNTS AND [...] Normal 80 and above >32 mL/min Normal Alp 93.5 U/L 35-129 [facility] ([facility] NORMAL RANGES Age WBC RBC HGB HCT [...] HCT IS 5% LESS SOURCE FOR DATA: [employer] DYN 1800 OPERATION MANUAL( AUTOMATED BLOOD COUNTS AND [...] Normal 80 and above >32 mL/min Normal Globulin 2.7 [facility] ([facility] NORMAL RANGES Age WBC RBC HGB HCT [...] HCT IS 5% LESS SOURCE FOR DATA: Retewi 1800 OPERATION MANUAL( AUTOMATED BLOOD COUNTS AND [...] Normal 80 and above >32 mL/min Normal Ast (Sgot) 16 U/L 0-40 [facility] ([facility] NORMAL RANGES Age WBC RBC HGB HCT [...] HCT IS 5% LESS SOURCE FOR DATA: Retewi 1800 OPERATION MANUAL( AUTOMATED BLOOD COUNTS AND [...] Normal 80 and above >32 mL/min Normal Alt (SGPT) 9 U/L 0-41 [facility] ([facility] NORMAL RANGES Age WBC RBC HGB HCT [...] HCT IS 5% LESS SOURCE FOR DATA: Retewi 1800 OPERATION MANUAL( AUTOMATED BLOOD COUNTS AND [...] Normal 80 and above >32 mL/min Normal Tbili 0.41 mg/dL 0.0-1.2 [facility] NORMAL RANGES Age WBC RBC HGB HCT [...] HCT IS 5% LESS SOURCE FOR DATA: DANIEL DYN 1800 OPERATION MANUAL( AUTOMATED BLOOD COUNTS AND [...] Normal 80 and above >32 mL/min Normal Anion Gap 15 mmol/L [facility] NORMAL RANGES Age WBC RBC HGB HCT [...] HCT IS 5% LESS SOURCE FOR DATA: [employer]i 1800 OPERATION MANUAL( AUTOMATED BLOOD COUNTS AND [...] Normal 80 and above >32 mL/min Normal eGFR 92 # [facility] ( [facility] NORMAL RANGES Age WBC RBC HGB HCT [...] HCT IS 5% LESS SOURCE FOR DATA: [employer]ewi 1800 OPERATION MANUAL( AUTOMATED BLOOD COUNTS AND [...] Normal 80 and above >32 mL/min Normal Osmolality-Calculated 277.4 [facility] ([facility] NORMAL RANGES Age WBC RBC HGB HCT [...] HCT IS 5% LESS SOURCE FOR DATA: [employer]i 1800 OPERATION MANUAL( AUTOMATED BLOOD COUNTS AND [...] Normal 80 and above >32 mL/min Normal eGFR Non-Afr. [place] 80 # MEDENT ([facility] NORMAL RANGES Age WBC RBC HGB HCT [...] HCT IS 5% LESS SOURCE FOR DATA: [employer] 1800 OPERATION MANUAL( AUTOMATED BLOOD COUNTS AND [...] Normal 80 and above >32 mL/min Normal ID Date Data Source [id number] 01/04/2020 02:10:00 PM EDT MEDENT ([facility] Name Value Range Interpretation Code Description Data Cindi rce(s) Supporting Document(s) WBC 5.2 10E3/uL 4.1-10.9 FÉLIX ([facility] NORMAL RANGES Age WBC RBC HGB HCT [...] HCT IS 5% LESS SOURCE FOR DATA: [employer] 1800 OPERATION MANUAL( AUTOMATED BLOOD COUNTS AND [...] Normal 80 and above >32 mL/min Normal RBC 4.30 10E6/uL 4.20-6.30 FÉLIX ([facility] NORMAL RANGES Age WBC RBC HGB HCT [...] HCT IS 5% LESS SOURCE FOR DATA: [employer] 1800 OPERATION MANUAL( AUTOMATED BLOOD COUNTS AND [...] Normal 80 and above >32 mL/min Normal HGB 13.3 g/dL 12.0-18.0 [facility] ([facility] NORMAL RANGES Age WBC RBC HGB HCT [...] HCT IS 5% LESS SOURCE FOR DATA: [employer] 1800 OPERATION MANUAL( AUTOMATED BLOOD COUNTS AND [...] Normal 80 and above >32 mL/min Normal HCT 41.0 % 37.0-51.0 [facility] NORMAL RANGES Age WBC RBC HGB HCT [...] HCT IS 5% LESS SOURCE FOR DATA: [employer] 1800 OPERATION MANUAL( AUTOMATED BLOOD COUNTS AND [...] Normal 80 and above >32 mL/min Normal MCV 95.3 fL 80.0-97.0 [facility] ([facility] NORMAL RANGES Age WBC RBC HGB HCT [...] HCT IS 5% LESS SOURCE FOR DATA: DANIEL DYN 1800 OPERATION MANUAL( AUTOMATED BLOOD COUNTS AND [...] Normal 80 and above >32 mL/min Normal MCH 30.9 pg 26.0-32.0 [facility] NORMAL RANGES Age WBC RBC HGB HCT [...] HCT IS 5% LESS SOURCE FOR DATA: [employer] 1800 OPERATION MANUAL( AUTOMATED BLOOD COUNTS AND [...] Normal 80 and above >32 mL/min Normal MCHC 32.4 g/dL 31.0-36.0 [facility] ([facility] NORMAL RANGES Age WBC RBC HGB HCT [...] HCT IS 5% LESS SOURCE FOR DATA: [employer] 1800 OPERATION MANUAL( AUTOMATED BLOOD COUNTS AND [...] Normal 80 and above >32 mL/min Normal RDW-CV 15.1 % 11.5-14.5 Above high normal [facility] NORMAL RANGES Age WBC RBC HGB HCT [...] HCT IS 5% LESS SOURCE FOR DATA: [employer] 1800 OPERATION MANUAL( AUTOMATED BLOOD COUNTS AND [...] Normal 80 and above >32 mL/min Normal PLT 218 10E3/uL 140-440 [facility] ([facility] NORMAL RANGES Age WBC RBC HGB HCT [...] HCT IS 5% LESS SOURCE FOR DATA: [employer] 1800 OPERATION MANUAL( AUTOMATED BLOOD COUNTS AND [...] Normal 80 and above >32 mL/min Normal Lym% 28.0 % 10.0-58.5 [facility] ([facility] NORMAL RANGES Age WBC RBC HGB HCT [...] HCT IS 5% LESS SOURCE FOR DATA: [employer] 1800 OPERATION MANUAL( AUTOMATED BLOOD COUNTS AND [...] Normal 80 and above >32 mL/min Normal Lym# 1.5 10E3/uL 0.6-4.1 [facility] ([facility] NORMAL RANGES Age WBC RBC HGB HCT [...] HCT IS 5% LESS SOURCE FOR DATA: [employer] 1800 OPERATION MANUAL( AUTOMATED BLOOD COUNTS AND [...] Normal 80 and above >32 mL/min Normal MXD% 13.3 % 0.1-24.0 [facility] ([facility] NORMAL RANGES Age WBC RBC HGB HCT [...] HCT IS 5% LESS SOURCE FOR DATA: [employer] 1800 OPERATION MANUAL( AUTOMATED BLOOD COUNTS AND [...] Normal 80 and above >32 mL/min Normal Neut% 58.7 % 37.0-92.0 [facility] ([facility] NORMAL RANGES Age WBC RBC HGB HCT [...] HCT IS 5% LESS SOURCE FOR DATA: [employer] 1800 OPERATION MANUAL( AUTOMATED BLOOD COUNTS AND [...] Normal 80 and above >32 mL/min Normal MXD# 0.7 10E3/uL 0.0-1.8 [facility] ([facility] NORMAL RANGES Age WBC RBC HGB HCT [...] HCT IS 5% LESS SOURCE FOR DATA: [employer] DYN 1800 OPERATION MANUAL( AUTOMATED BLOOD COUNTS AND [...] Normal 80 and above >32 mL/min Normal MPV 10.6 fL 9.0-13.0 [facility] ([facility] NORMAL RANGES Age WBC RBC HGB HCT [...] HCT IS 5% LESS SOURCE FOR DATA: [employer] 1800 OPERATION MANUAL( AUTOMATED BLOOD COUNTS AND [...] Normal 80 and above >32 mL/min Normal Neut# 3.0 % 2.0-7.8 [facility] ([facility] NORMAL RANGES Age WBC RBC HGB HCT [...] HCT IS 5% LESS SOURCE FOR DATA: [employer] 1800 OPERATION MANUAL( AUTOMATED BLOOD COUNTS AND [...] Normal 80 and above >32 mL/min Normal ID Date Data Source [id number] 01/04/2020 02:10:00 PM EDT FÉLIX ([facility] Name Value Range Interpretation Code Description Data Cindi rce(s) Supporting Document(s) Thyrotropin [Units/volume] in Serum or Plasma 0.656 ulU/mL 0.60-4.8 FÉLIX ([facility] Procedure Vital Signs ID Date Data Source UNK Name Value Range Interpretation Code Description Data Source(s) Oxygen saturation in Arterial blood by Pulse oximetry 96 % 96 % FÉLIX ([facility] (AT Rest), (Room Air) Body mass index (BMI) [Ratio] 26.7 kg/m2 26.7 k g/m2 FÉLIX ([facility] [place] body weight 110 [lb_av] 110 [lb_av] CHRISTY T ([facility] Body weight 146.00 [lb_av] 146.00 [lb_av] MEDEN T ([facility] Body height 62 [in_i] 62 [in_i] [facility] ([facility] 5'2" Respiratory rate 16 /min 16 /min MEDENT ( [facility] Heart rate 73 /min 73 /min MEDENT ([facility] Body temperature 97.5 [degF] 97.5 [degF] MEDENT ([facility] Diastolic blood pressure 72 mm[Hg] 72 mm[Hg] MEDENT ([facility] Systolic blood pressure 126 mm[Hg] 126 mm[Hg] M EDENT ([facility] Oxygen saturation in Arterial blood by Pulse oximetry 97 % 97 % MEDENT ([facility] (AT [place]), (Room Air) Body mass index (BMI) [Ratio] 25.8 kg/m2 25.8 k g/m2 MEDENT ([facility] [place] body weight 110 [lb_av] 110 [lb_av] MEDEN T ([facility] Body weight 141.00 [lb_av] 141.00 [lb_av] MEDEN T ([facility] Body height 62 [in_i] 62 [in_i] MEDENT ([facility] 5'2" Respiratory rate 18 /min 18 /min MEDENT ( [facility] Heart rate 57 /min 57 /min MEDENT ([facility] Body temperature 97.8 [degF] 97.8 [degF] MEDENT ([facility] Diastolic blood pressure 72 mm[Hg] 72 mm[Hg] MEDENT ([facility] Systolic blood pressure 138 mm[Hg] 138 mm[Hg] M EDENT ([facility] Oxygen saturation in Arterial blood by Pulse oximetry 96 % 96 % MEDENT ([facility] ([place]), (Room Air) Body mass index (BMI) [Ratio] 27.4 kg/m2 27.4 k g/m2 MEDENT ([facility] [place] body weight 110 [lb_av] 110 [lb_av] MEDEN T ([facility] Body weight 150.00 [lb_av] 150.00 [lb_av] MEDEN T ([facility] Body height 62 [in_i] 62 [in_i] MEDENT ([facility] 5'2" Respiratory rate 17 /min 17 /min MEDENT ( [facility] Heart rate 61 /min 61 /min MEDENT ([facility] Body temperature 97.7 [degF] 97.7 [degF] MEDENT ([facility] Diastolic blood pressure 60 mm[Hg] 60 mm[Hg] MEDENT ([facility] Systolic blood pressure 138 mm[Hg] 138 mm[Hg] M EDENT ([facility] Oxygen saturation in Arterial blood by Pulse oximetry 92 % 92 % MEDENT ([facility] Body mass index (BMI) [Ratio] 27.1 kg/m2 27.1 k g/m2 MEDENT ([facility] [place] body weight 110 [lb_av] 110 [lb_av] MEDEN T ([facility] Body weight 148.00 [lb_av] 148.00 [lb_av] MEDEN T ([facility] Body height 62 [in_i] 62 [in_i] MEDENT ([facility] 5'2" Respiratory rate 18 /min 18 /min MEDENT ( [facility] Heart rate 92 /min 92 /min MEDENT ([facility] Body temperature 97.3 [degF] 97.3 [degF] MEDENT ([facility] Diastolic blood pressure 88 mm[Hg] 88 mm[Hg] MEDENT ([facility] Systolic blood pressure 124 mm[Hg] 124 mm[Hg] M EDENT ([facility] Oxygen saturation in Arterial blood by Pulse oximetry 98 % 98 % MEDENT ([facility] Body mass index (BMI) [Ratio] 30.4 kg/m2 30.4 k g/m2 MEDENT ([facility] [place] body weight 110 [lb_av] 110 [lb_av] MEDEN T ([facility] Body weight 166.00 [lb_av] 166.00 [lb_av] MEDEN T ([facility] Body height 62 [in_i] 62 [in_i] MEDENT ([facility] 5'2" Respiratory rate 16 /min 16 /min MEDENT ( [facility] Heart rate 74 /min 74 /min MEDENT ([facility] Body temperature 97.8 [degF] 97.8 [degF] MEDENT ([facility] Diastolic blood pressure 78 mm[Hg] 78 mm[Hg] MEDENT ([facility] Systolic blood pressure 126 mm[Hg] 126 mm[Hg] M EDENT ([facility] Body weight 75.298 kg 75.298 kg MEDENT ([facility]) Body weight 166.00 [lb_av] 166.00 [lb_av] MEDEN T ([facility]) Oxygen saturation in Arterial blood by Pulse oximetry 98 % 98 % MEDENT ([facility]) Body temperature 97.8 [degF] 97.8 [degF] MEDENT ([facility]) Heart rate 88 /min 88 /min MEDENT ([facility]) Diastolic blood pressure 86 mm[Hg] 86 mm[Hg] MEDENT ([facility]) Systolic blood pressure 138 mm[Hg] 138 mm[Hg] [facility] Oxygen saturation in Arterial blood by Pulse oximetry 97 % 97 % MEDENT ([facility] Body mass index (BMI) [Ratio] 30.4 kg/m2 30.4 k g/m2 MEDENT ([facility] Body weight 166.00 [lb_av] 166.00 [lb_av] MEDEN T ([facility] Body height 62 [in_i] 62 [in_i] MEDENT ([facility] 5'2" Respiratory rate 16 /min 16 /min FÉLIX ( [facility] Heart rate 98 /min 98 /min FÉLIX ([facility] Body temperature 98.6 [degF] 98.6 [degF] FÉLIX ([facility] Diastolic blood pressure 78 mm[Hg] 78 mm[Hg] FÉLIX ([facility] Systolic blood pressure 124 mm[Hg] 124 mm[Hg] M YANIQUE ([facility] ID Date Data Source [id number] 08/15/2020 10:11:05 AM EST [facility] Name Value Range Interpretation Code Description Data Source(s) WEIGHT RECORDED 146.00 pounds 146.00 pounds [facility] Height 63 Inches 063 Inches [facility]
--- OUTSIDE RECORDS SUMMARY | 2020-08-15 10:33 | CCD | Continuity of Care Document ---
Author Author Shaina NIEVES PA Organization Unknown Address [address] [place] [id number] Phone [phone] Problems Active Problems Provider Date Osteoporosis Susie [...] Provider Date Injection (SC)/(Im) Injection Janay Cohen [facility] 03/01/2019 Injection (SC)/(Im) Injection Janay Cohen [facility] 05/26/2017 Injection (SC)/(Im) Injection Susie Summers, [facility] 03/25/2011 Immunizations CPT Code Status Date Vaccine Lot # [id number] Given 03/01/2019 Influenza Virus Vaccine, Quadrivalent, Slit Virus, Im Use 3Y & Up [id number] Given 03/15/2018 Influenza Virus Vaccine, Quadrivalent, Slit Virus, Im Use 3Y & Up [id number] Given 03/25/2011 Influenza Vaccin e (Fluzone) 3Yrs Of Age Or Older Medicare Plans [id number] Given 03/25/2011 Influenza Virus Vac. Split Virus Individuals 3 Years And Above [id number] Vital Signs Date Vital Result Comment 05/13/2020 10:47am BP Systolic 138 mmHg BP Diastolic 60 mmHg Body Temperature 97.7 F Heart Rate 61 /min Respiratory Rate 17 /min Height 62 inches 5'2" Weight 150.00 lb [place] Body Weight 110 lb BMI (Body Mass Index) 27.4 kg/m2 O2 % BldC Oximetry 96 % (AT Rest), (Room Air ) 04/09/2020 10:56am BP Systolic 124 mmHg BP Diastolic 88 mmHg Body Temperature 97.3 F Heart Rate 92 /min Respiratory Rate 18 /min Height 62 inches 5'2" Weight 148.00 lb [place] Body Weight 110 lb BMI (Body Mass [...] eGFR 92 # Calc 2 eGFR Non-Afr. Dominican 80 # Calc 3 1 NORMAL RANGES [...] HCT IS 5% LESS SOURCE FOR DATA: [place] 1800 OPERATION MANUAL( AUTOMATED BLOOD COUNTS AND [...] 3 CKD-EPI Procedures Date Code Description Status 04/09/2020 10169 Electrocardiogram Complete Compl eted 01/04/2020 13764 Electrocardiogram Complete Compl eted Medical Devices Description No Information Available Encounters Type Date Location Provider Dx Diagnosis Office Visit 05/13/2020 10:40a [facility] Peace Nieves PA I48.20 Chronic atrial fibrillation, unspecified R42 Dizziness and giddiness Office Visit 04/09/2020 11:00a [place] [facility] Rajesh Nieves PA Z00.01 Encounter for general adult medical exam w abnormal findings I48.20 Chronic atrial fibrillation, unspecified K21.9 Gastro-esophageal reflux dis ease without esophagitis Office Visit 01/04/2020 2:00p [place] [facility] Rajesh Nieves PA I48.20 Chronic atrial [...] Treatment Future Appointment(s):* 06/17/2020 10:40 am - Sarina Nieves PA at [facility] Functional Status Description No Information Available Mental Status Description No Information Available Referrals Refer to Dr Reason for Referral Status Appt Date Chivo De Guzman M.D. eval and treat chronic a fib. not symptomati c. Sent 01/23/[address] [place] [address] [phone]
[2020-08-15] MEDS ORDERED: METO1TAB32 (10:36)
[2020-08-15] MEDS ORDERED: FLUO10CA16 (10:36)
--- NOTE | 2020-08-15 11:28 | REP ---
INDICATION: fall. COMPARISON: 11/15/2010 TECHNIQUE: Two views FINDINGS: AP and frogleg view show the left hip arthroplasty. The femoral head component shows normal mobility in the acetabulum. The femoral stem component is tightly applied to the lovelock bone without lucency to suggest loosening or infection. The visible portion of acetabulum, iliac bone, left SI joint and ischium unremarkable. IMPRESSION: Status post left hip arthroplasty with the arthroplasty demonstrating normal articulation with the lovelock acetabulum and the femoral stem component tightly applied to the lovelock bone. No acute fracture, subluxation or dislocation. <Electronically signed by Elías Chandra > 08/15/20 1124
[2020-08-15 11:41] VITALS: BP 139/82
--- OUTSIDE RECORDS SUMMARY | 2020-08-15 12:01 | CCD ---
Author Author [facility] Organization [facility] Address Unknown Phone Unavailable Care Team Providers Care [employer] Name Role Phone Carissa GUZMAN MD Unavailable Unavailable Carissa GUZMAN [...] Unavailable Unavailable Barraclough, Sarina PA Unavailable Unavailable Keily GUTIÉRREZ NP Unavailable Unavailable Keily GUTIÉRREZ NP Unavailable Unavailable Keily GUTIÉRREZ NP Unavailable Unavailable Keily GUTIÉRREZ NP Unavailable Unavailable Keily GUTIÉRREZ NP Unavailable Unavailable Keily GUTIÉRREZ NP Unavailable Unavailable Keily GUTIÉRREZ NP Unavailable Unavailable Keily GUTIÉRREZ NP Unavailable Unavailable GUTIÉRREZ, M MEIR MERCHANT MARINER Unavailable Unavailable GUTIÉRREZ, M MEIR MERCHANT MARINER Unavailable Unavailable GUTIÉRREZ, M MEIR MERCHANT MARINER Unavailable Unavailable GUTIÉRREZ, M MEIR MERCHANT MARINER Unavailable Unavailable GUTIÉRREZ, M MEIR MERCHANT MARINER Unavailable Unavailable GUTIÉRREZ, M MEIR MERCHANT MARINER Unavailable Unavailable GUTIÉRREZ, M MEIR MERCHANT MARINER Unavailable Unavailable GUTIÉRREZ, M MEIR MERCHANT MARINER Unavailable Unavailable GUTIÉRREZ, M MEIR MERCHANT MARINER Unavailable Unavailable GUTIÉRREZ, M MEIR MERCHANT MARINER Unavailable Unavailable GUTIÉRREZ, M MEIR MERCHANT MARINER Unavailable Unavailable GUTIÉRREZ, M MEIR MERCHANT MARINER Unavailable Unavailable GUTIÉRREZ, M MEIR MERCHANT MARINER Unavailable Unavailable GUTIÉRREZ, M MEIR MERCHANT MARINER Unavailable Unavailable GUTIÉRREZ, M MEIR MERCHANT MARINER Unavailable Unavailable GUTIÉRREZ, M MEIR MERCHANT MARINER Unavailable Unavailable GUTIÉRREZ, M MEIR MERCHANT MARINER Unavailable Unavailable GUTIÉRREZ, M MEIR MERCHANT MARINER Unavailable Unavailable GUTIÉRREZ, M MEIR MERCHANT MARINER Unavailable Unavailable GUTIÉRREZ, M MEIR MERCHANT MARINER Unavailable Unavailable GUTIÉRREZ, M MEIR MERCHANT MARINER Unavailable Unavailable GUTIÉRREZ, M MEIR MERCHANT MARINER Unavailable Unavailable GUTIÉRREZ, M MEIR MERCHANT MARINER Unavailable Unavailable GUTIÉRREZ, M MEIR MERCHANT MARINER Unavailable Unavailable GUTIÉRREZ, M MEIR MERCHANT MARINER Unavailable Unavailable GUTIÉRREZ, M MEIR MERCHANT MARINER Unavailable Unavailable GUTIÉRREZ, M MEIR MERCHANT MARINER Unavailable Unavailable GUTIÉRREZ, M MEIR MERCHANT MARINER Unavailable Unavailable GUTIÉRREZ, M MEIR MERCHANT MARINER Unavailable Unavailable GUTIÉRREZ, M MEIR MERCHANT MARINER Unavailable Unavailable GUTIÉRREZ, M MEIR MERCHANT MARINER Unavailable Unavailable GUTIÉRREZ, M MEIR MERCHANT MARINER Unavailable Unavailable GUTIÉRREZ, M MEIR MERCHANT MARINER Unavailable Unavailable GUTIÉRREZ, M MEIR MERCHANT MARINER Unavailable Unavailable GUTIÉRREZ, M MEIR MERCHANT MARINER Unavailable Unavailable GUTIÉRREZ, M MEIR MERCHANT MARINER Unavailable Unavailable GUTIÉRREZ, M MEIR MERCHANT MARINER Unavailable Unavailable GUTIÉRREZ, M MEIR MERCHANT MARINER Unavailable Unavailable GUTIÉRREZ, M MEIR MERCHANT MARINER Unavailable Unavailable GUTIÉRREZ, M MEIR MERCHANT MARINER Unavailable Unavailable GUTIÉRREZ, M MEIR MERCHANT MARINER Unavailable Unavailable GUTIÉRREZ, M MEIR MERCHANT MARINER Unavailable Unavailable GUTIÉRREZ, M MEIR MERCHANT MARINER Unavailable Unavailable GUTIÉRREZ, M MEIR MERCHANT MARINER Unavailable Unavailable GUTIÉRREZ, M MEIR MERCHANT MARINER Unavailable Unavailable GUTIÉRREZ, M MEIR MERCHANT MARINER Unavailable Unavailable GUTIÉRREZ, M MEIR MERCHANT MARINER Unavailable Unavailable GUTIÉRREZ, M MEIR MERCHANT MARINER Unavailable Unavailable GUTIÉRREZ, M MEIR MERCHANT MARINER Unavailable Unavailable GUTIÉRREZ, M MIER MERCHANT MARINER Unavailable Unavailable Delbert Young JRe MD Unavailable Unavailable Hector JR, D Angelina [...] LANDA Unavailable Unavailable Hector JR, D Angelina LNADA Unavailable Unavailable Hector JR, D Angelina LANDA [...] Hector JR, D Angelina LANDA Unavailable Unavailable Ehctor JR, D Angelina LANDA Unavailable Unavailable Hector [...] is protected by Article 27-F of the [facility] Public Health law. If you continue you may have access to information: Regarding HIV / AIDS; Provided by facilities licensed or operated by the [facility] Office of Mental Health; or Provided by the [facility] Office for People With Developmental Disabilities. If such information is present, then the following [facility] mandated warning applies: This information has been [...] law may result in a fine or senior living sentence or both. A general authorization for the release of medical or other information is NOT sufficient authorization for further disc losure. Allergies and Adverse Reactions Type Description Substance Reaction Status Data Source(s ) ENVIRONMENTAL adhesive tape adhesive tape RASH [facility] Drug allergy TRAMADOL TRAMADOL MAKES HER GO CRAZY COMBATIVE [facility] Family History Family Member Name Family Member Gender Family Member Status Date o f Status Description Data Source(s) Unknown Female Problem [facility] ([facility]) Unknown Female Problem [facility] ([facility]) Unknown Female Problem [facility] ([facility]) Unknown Female Problem [facility] ([facility]) Encounters Encounter Providers Location Date Indications Data Source(s ) Outpatient Attender: Angelina Lealsultant: MEIR VILLEGAS NP 08/10/2020 08:40:00 AM EST - 08/10/2020 09:40:00 AM [facility] Patient discharged. Outpatient Attender: Angelina Mckeonant: MEIR VILLEGAS NP 08/08/2020 02:02:42 PM EST - 08/15/2020 09:26:00 AM [facility] Patient discharged. Outpatient Attender: Angelina Mckeonant: MEIR VILLEGAS NP 08/08/2020 01:58:08 PM EST - 08/12/2020 12:33:00 PM EST [facility] Patient discharged. Outpatient Attender: Sarina Garciasmiladys Ortiz [place] ce 07/08/2020 12:30:00 PM EST [facility] ([facility] Outpatient Attender: Sarina Garciasmiladys Ortiz Kadeem ce 06/24/2020 01:00:00 PM EST [facility] ([facility] Outpatient Attender: Sarinadavid Ortiz Kadeem ce 05/13/2020 09:40:00 AM EST [facility] ([facility] Outpatient Attender: Sarinadavid [place] Kade[place] ce 04/09/2020 11:00:00 AM EDT [facility] ([facility] Outpatient Attender: JESSIE GUZMAN MDConsultant: MEIR Grider NP 01/31/2020 01:04:00 PM EDT - 01/31/2020 01:04:00 PM EDT [facility] Outpatient Attender: Sarina Garciasmiladys [place]LEY [place] [facility] 01/04/2020 02:00:00 PM EDT [facility] ([facility] Outpatient Attender: JESSIE GUZMAN MDConsultant: MEIR Grider NP 08/02/2019 12:46:00 PM EST - 08/02/2019 12:46:00 PM EST [facility] Outpatient Attender: JESSIE GUZMAN MD [facility] 08/02/2019 1 2:00:00 PM EST [facility] ([facility]) Medications Medication Brand Name Start Date Product Form Dose Route Admi nistrative Instructions Pharmacy Instructions Status Indications Reaction Description Data Source(s) apixaban 2.5 MG Oral Tablet [Eliquis] Eliquis 06/24/2020 12:00:00 AM EST ORAL active [facility] ([facility] Omeprazole 20 MG Delayed Release Oral Capsule Omeprazole 04/09/2020 12:00:00 AM EDT ORAL active [facility] 24 HR metoprolol succinate 25 MG Extended Release Oral Tablet Metoprolol Succinate ER 04/09/2020 12:00:00 AM EDT ORAL active [facility] ([facility] 24 HR Diltiazem Hydrochloride 180 MG Extended Release Oral Capsule Diltiazem HCL ER [facility] 09/11/2019 12:00:00 AM EDT ORAL active [facility] ([facility] Insurance Providers Payer name Policy type / Coverage type Policy ID Covered constitution party ID Covered constitution party's relationship to busby Policy Busby Plan Information MEDICARE COMPLETE [id number] SP [id number] [facility] [employer] [facility] MEDICARE O/P [id number] 18 [id number] MEDICARE PART A [facility] [id number] 18 [id number] MEDICARE PART A [facility] UNAVAILABLE 18 UNAVAILABLE [facility] SECURE HORIZONS 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 [id number] Self [id number] Special Funds-Dew () Workers Compensation [id number] Self [id number] [facility] Medigap Part B [id number] Self [id number] MEDICARE [id number] SP [id number] A MEDICARE COMPLETE-[facility] O [id number] S [id number] MEDICARE COMPLETE [id number] SP [id number] MEDICARE COMPLETE [id number] SP [id number] MEDICARE COMPLETE-[facility] O [id number] S [id number] [facility] ([facility]) Commercial [id number] Self [id number] [facility] Medigap Part B Self [facility] ([facility]) Commercial Self SPECIAL FUNDS O [id number] S [id number] 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 (WC) Workers Compensation Self Special Funds-Dew () Workers Compensation Self WORKMENS COMP AND NO FAULT OTHER -O/P [id number] 18 [id number] SPECIAL FUNDS CONSERVATION-DEW [id number] SP [id number] SPECIAL FUNDS CONSERVATION-DEW [id number] SP [id number] Problems, Conditions, and Diagnoses Code Display Name Description Problem Type Effective Dates Data Source(s) 78970666 Dementia Dementia Problem 06/24/2020 12:00:00 AM ES T [facility] ([facility] [id number] Paroxysmal atrial fibrillation Paroxysmal atrial fibri llation Problem 03/01/2020 12:00:00 AM EDT [facility] ([facility] ) [id number] Encounter for other preprocedural examin ation Encounter for other preprocedural examination Diagnosis 08/10/2020 08:40:00 AM [facility] Z1152 ENCOUNTER FOR SCREENING FOR COVID-19 ENCOUNTER F OR SCREENING FOR COVID-19 Diagnosis 08/10/2020 08:40:00 AM [facility] R99 Ill-defined and unknown cause of mortali ty Ill-defined and unknown cause of mortality Diagnosis 01/31/2020 01:04:00 PM EDT [facility] [id number] Personal history of other malignant neop lasm of skin Personal history of other malignant neoplasm of skin Diagnosis 08/02/2019 12:46:00 PM [facility] Surgeries/Procedures Procedure Description Date Indications Data Source(s) Electrocardiogram Complete 06/24/2020 12:00:00 AM EST [facility] ([facility] Electrocardiogram Complete 05/13/2020 12:00:00 AM EST [facility] ([facility] Electrocardiogram Complete 04/09/2020 12:00:00 AM EDT [facility] ([facility] Electrocardiogram Complete 01/04/2020 12:00:00 AM EDT [facility] ([facility] Results ID Date Data Source [id number] 08/10/2020 07:05:00 AM [facility] Name Value Range Interpretation Code Description Data Cindi rce(s) Supporting Document(s) SARS coronavirus 2 RNA Not Detected [facility] [place] This lab was ordered by [facility] anil and reported by [facility]. ID Date Data Source [id number] 08/11/2020 01:13:00 PM [facility] Name Value Range Interpretation Code Description Data Cindi rce(s) Supporting Document(s) SARS-CoV-2, SAURABH Not Detected Not Detected [facility] This nucleic acid amplification test was developed and its performancecharacteristics determined by [employer]. Nucleic acidamplification tests include RT-PCR and TMA. [...] in this assay. ID Date Data Source [id number] 01/04/2020 02:10:00 PM EDT [facility] ([facility] Name Value Range Interpretation Code Description Data Cindi rce(s) Supporting Document(s) Glu 87 mg/dL 70-110 [facility] NORMAL RANGES Age [...] HCT IS 5% LESS SOURCE FOR DATA: Influitive 1800 OPERATION MANUAL( AUTOMATED BLOOD COUNTS AND [...] >32 mL/min Normal BUN 15 mg/dL 8- [facility] ([facility] NORMAL [...] HCT IS 5% LESS SOURCE FOR DATA: [employer]itive 1800 OPERATION MANUAL( AUTOMATED BLOOD COUNTS AND [...] >32 mL/min Normal Creat 0.7 mg/dL 0.5-1.0 [facility] ([facility] NORMAL [...] HCT IS 5% LESS SOURCE FOR DATA: Influitive 1800 OPERATION MANUAL( AUTOMATED BLOOD COUNTS AND [...] >32 mL/min Normal Na 139 mmol/L 136-145 [facility] ([facility] NORMAL RANGES Age [...] HCT IS 5% LESS SOURCE FOR DATA: Influitive 1800 OPERATION MANUAL( AUTOMATED BLOOD COUNTS AND [...] above >32 mL/min Normal BUN/Creatinine Ratio 20.3 [facility] ([facility] NORMAL RANGES Age WBC RBC [...] HCT IS 5% LESS SOURCE FOR DATA: [employer]itive 1800 OPERATION MANUAL( AUTOMATED BLOOD COUNTS AND [...] >32 mL/min Normal Co2 24.8 mmol/L 22.0-29.0 [facility] ([facility] NORMAL RANGES Age WBC RBC HGB [...] HCT IS 5% LESS SOURCE FOR DATA: Influitive 1800 OPERATION MANUAL( AUTOMATED BLOOD COUNTS AND [...] >32 mL/min Normal K 4.4 mmol/L 3.5-5.1 [facility] (Former[facility] NORMAL RANGES Age WBC RBC [...] HCT IS 5% LESS SOURCE FOR DATA: [employer] DYN 1800 OPERATION MANUAL( AUTOMATED BLOOD COUNTS [...] >32 mL/min Normal CL 103.9 mmol/L 98.0-107.0 [facility] ([facility] NORMAL RANGES Age WBC [...] HCT IS 5% LESS SOURCE FOR DATA: [employer] 1800 OPERATION MANUAL( AUTOMATED BLOOD COUNTS AND [...] >32 mL/min Normal TP 6.8 g/dL 6.6-8.7 [facility] ([facility] NORMAL RANGES Age [...] HCT IS 5% LESS SOURCE FOR DATA: [employer] 1800 OPERATION MANUAL( AUTOMATED BLOOD COUNTS AND [...] >32 mL/min Normal CA 9.6 mg/dL 8.6-10.2 [facility] ([facility] NORMAL RANGES Age [...] HCT IS 5% LESS SOURCE FOR DATA: [employer] 1800 OPERATION MANUAL( AUTOMATED BLOOD COUNTS AND [...] >32 mL/min Normal Alb 4.1 g/dL 3.4-4.8 [facility] ([facility] NORMAL [...] HCT IS 5% LESS SOURCE FOR DATA: [employer] 1800 OPERATION MANUAL( AUTOMATED BLOOD COUNTS AND [...] HCT IS 5% LESS SOURCE FOR DATA: [employer] 1800 OPERATION MANUAL( AUTOMATED BLOOD COUNTS AND [...] >32 mL/min Normal Alp 93.5 U/L 35-129 [facility] ([facility] NORMAL [...] HCT IS 5% LESS SOURCE FOR DATA: [employer] DYN 1800 OPERATION MANUAL( AUTOMATED BLOOD COUNTS [...] HCT IS 5% LESS SOURCE FOR DATA: [employer] 1800 OPERATION MANUAL( AUTOMATED BLOOD COUNTS AND [...] mL/min Normal Ast (Sgot) 16 U/L 0-40 [facility] ([facility] NORMAL RANGES Age WBC RBC HGB [...] HCT IS 5% LESS SOURCE FOR DATA: [employer] 1800 OPERATION MANUAL( AUTOMATED BLOOD COUNTS AND [...] mL/min Normal Alt (SGPT) 9 U/L 0-41 [facility] ([facility] NORMAL RANGES Age WBC RBC HGB [...] HCT IS 5% LESS SOURCE FOR DATA: [employer] 1800 OPERATION MANUAL( AUTOMATED BLOOD COUNTS AND [...] >32 mL/min Normal Tbili 0.41 mg/dL 0.0-1.2 [employer] (Formerly named [facility] NORMAL RANGES Age WBC RBC [...] >32 mL/min Normal Anion Gap 15 mmol/L [facility] ([facility] NORMAL RANGES Age WBC [...] HCT IS 5% LESS SOURCE FOR DATA: Influitive 1800 OPERATION MANUAL( AUTOMATED BLOOD COUNTS AND [...] HCT IS 5% LESS SOURCE FOR DATA: [employer] 1800 OPERATION MANUAL( AUTOMATED BLOOD COUNTS AND [...] HCT IS 5% LESS SOURCE FOR DATA: Influitive 1800 OPERATION MANUAL( AUTOMATED BLOOD COUNTS AND [...] and above >32 mL/min Normal eGFR Non-Afr. Egyptian 80 # [facility] ([facility] [...] HCT IS 5% LESS SOURCE FOR DATA: [employer] 1800 OPERATION MANUAL( AUTOMATED BLOOD COUNTS AND [...] >32 mL/min Normal ID Date Data Source [id number] 01/04/2020 02:10:00 PM EDT [facility] ([facility] Name Value Range Interpretation Code Description Data Cindi rce(s) Supporting Document(s) WBC 5.2 10E3/uL 4.1-10.9 [facility] ([facility] NORMAL RANGES Age WBC RBC [...] HCT IS 5% LESS SOURCE FOR DATA: [employer] 1800 OPERATION MANUAL( AUTOMATED BLOOD COUNTS AND [...] mL/min Normal RBC 4.30 10E6/uL 4.20-6.30 [facility] ([facility] NORMAL RANGES Age [...] HCT IS 5% LESS SOURCE FOR DATA: Influitive 1800 OPERATION MANUAL( AUTOMATED BLOOD COUNTS AND [...] mL/min Normal HGB 13.3 g/dL 12.0-18.0 [facility] NORMAL RANGES Age [...] HCT IS 5% LESS SOURCE FOR DATA: Influitive 1800 OPERATION MANUAL( AUTOMATED BLOOD COUNTS AND [...] >32 mL/min Normal HCT 41.0 % 37.0-51.0 [facility] ([facility] NORMAL RANGES Age WBC [...] HCT IS 5% LESS SOURCE FOR DATA: Influitive 1800 OPERATION MANUAL( AUTOMATED BLOOD COUNTS AND [...] >32 mL/min Normal MCV 95.3 fL 80.0-97.0 [facility] ([facility] NORMAL [...] >32 mL/min Normal MCH 30.9 pg 26.0-32.0 [facility] ([facility] NORMAL RANGES Age [...] HCT IS 5% LESS SOURCE FOR DATA: Influitive 1800 OPERATION MANUAL( AUTOMATED BLOOD COUNTS AND [...] >32 mL/min Normal MCHC 32.4 g/dL 31.0-36.0 [facility] ([facility] NORMAL RANGES Age WBC [...] HCT IS 5% LESS SOURCE FOR DATA: [employer] 1800 OPERATION MANUAL( AUTOMATED BLOOD COUNTS AND [...] RDW-CV 15.1 % 11.5-14.5 Above high normal [facility] ([facility] NORMAL RANGES [...] HCT IS 5% LESS SOURCE FOR DATA: Influitive 1800 OPERATION MANUAL( AUTOMATED BLOOD COUNTS AND [...] >32 mL/min Normal PLT 218 10E3/uL 140-440 [facility] ([facility] NORMAL RANGES Age WBC RBC [...] HCT IS 5% LESS SOURCE FOR DATA: Influitive 1800 OPERATION MANUAL( AUTOMATED BLOOD COUNTS AND [...] HCT IS 5% LESS SOURCE FOR DATA: Influitive 1800 OPERATION MANUAL( AUTOMATED BLOOD COUNTS AND [...] >32 mL/min Normal Lym# 1.5 10E3/uL 0.6-4.1 [facility] ([facility] NORMAL RANGES Age WBC RBC [...] HCT IS 5% LESS SOURCE FOR DATA: Influitive 1800 OPERATION MANUAL( AUTOMATED BLOOD COUNTS AND [...] >32 mL/min Normal MXD% 13.3 % 0.1-24.0 [facility] ([facility] NORMAL RANGES Age [...] HCT IS 5% LESS SOURCE FOR DATA: Influitive 1800 OPERATION MANUAL( AUTOMATED BLOOD COUNTS AND [...] >32 mL/min Normal Neut% 58.7 % 37.0-92.0 [facility] NORMAL RANGES Age WBC [...] HCT IS 5% LESS SOURCE FOR DATA: Influitive 1800 OPERATION MANUAL( AUTOMATED BLOOD COUNTS AND [...] >32 mL/min Normal MXD# 0.7 10E3/uL 0.0-1.8 [facility] ([facility] NORMAL RANGES Age WBC RBC [...] HCT IS 5% LESS SOURCE FOR DATA: [employer] DYN 1800 OPERATION MANUAL( AUTOMATED BLOOD COUNTS [...] >32 mL/min Normal MPV 10.6 fL 9.0-13.0 [facility] ([facility] NORMAL RANGES Age WBC [...] HCT IS 5% LESS SOURCE FOR DATA: Influitive 1800 OPERATION MANUAL( AUTOMATED BLOOD COUNTS AND [...] >32 mL/min Normal Neut# 3.0 % 2.0-7.8 [facility] NORMAL RANGES Age [...] HCT IS 5% LESS SOURCE FOR DATA: Influitive 1800 OPERATION MANUAL( AUTOMATED BLOOD COUNTS AND [...] >32 mL/min Normal ID Date Data Source [id number] 01/04/2020 02:10:00 PM EDT [facility] ([facility] Name Value Range Interpretation Code Description Data Cindi rce(s) Supporting Document(s) Thyrotropin [Units/volume] in Serum or Plasma 0.656 ulU/mL 0.60-4.8 [facility] ([facility] Procedure Vital Signs ID Date Data Source UNK Name Value Range Interpretation Code Description Data Source(s) Oxygen saturation in Arterial blood by Pulse oximetry 96 % 96 % [facility] ([facility] (AT Rest), (Room Air) Body mass index (BMI) [Ratio] 26.7 kg/m2 26.7 k g/m2 [facility] ([facility] [place] body weight 110 [lb_av] 110 [lb_av] CHRISTY T ([facility] Body weight 146.00 [lb_av] 146.00 [...] k g/m2 [facility] ([facility] [place] body weight 110 [lb_av] 110 [lb_av] MEDEN T ([facility] Body weight 141.00 [lb_av] 141.00 [lb_av] MEDEN T ([facility] Body height 62 [in_i] 62 [in_i] [facility] ([facility] 5'2" Respiratory rate 18 [...] k g/m2 [facility] ([facility] [place] body weight 110 [lb_av] 110 [lb_av] MEDEN T ([facility] Body weight 150.00 [lb_av] 150.00 [lb_av] MEDEN T ([facility] Body height 62 [in_i] 62 [in_i] [facility] ([facility] 5'2" Respiratory rate 17 [...] k g/m2 [facility] ([facility] [place] body weight 110 [lb_av] 110 [lb_av] MEDEN T ([facility] Body weight 148.00 [lb_av] 148.00 [lb_av] MEDEN T ([facility] Body height 62 [in_i] 62 [in_i] [facility] ([facility] 5'2" Respiratory rate 18 [...] Pulse oximetry 98 % 98 % [facility] ([facility] Body mass index (BMI) [Ratio] 30.4 kg/m2 30.4 k g/m2 [facility] ([facility] [place] body weight 110 [lb_av] 110 [lb_av] MEDEN T ([facility] Body weight 166.00 [lb_av] 166.00 [lb_av] MEDEN T ([facility] Body height 62 [in_i] 62 [in_i] [facility] ([facility] 5'2" Respiratory rate 16 /min 16 /min [facility] ( [facility] Heart rate 74 /min 74 /min [facility] ([facility] Body temperature 97.8 [degF] 97.8 [degF] [facility] ([facility] Diastolic blood pressure 78 mm[Hg] 78 mm[Hg] [facility] ([facility] Systolic blood pressure 126 mm[Hg] 126 mm[Hg] M EDENT ([facility] Body weight 75.298 kg 75.298 kg [facility] ([facility]) Body weight 166.00 [lb_av] 166.00 [lb_av] MEDEN T ([facility]) Oxygen saturation in Arterial blood by Pulse oximetry 98 % 98 % [facility] ([facility]) Body temperature 97.8 [degF] 97.8 [degF] [facility] ([facility]) Heart rate 88 /min 88 /min [facility] ([facility]) Diastolic blood pressure 86 mm[Hg] 86 mm[Hg] [facility] ([facility]) Systolic blood pressure 138 mm[Hg] 138 mm[Hg] [facility] Oxygen saturation in Arterial blood by Pulse oximetry 97 % 97 % [facility] ([facility] Body mass index (BMI) [Ratio] 30.4 kg/m2 30.4 k g/m2 [facility] ([facility] Body weight 166.00 [lb_av] 166.00 [lb_av] MEDEN T ([facility] Body height 62 [in_i] 62 [in_i] FÉLIX ([facility] 5'2" Respiratory rate 16 /min 16 /min FÉLIX ( [facility] Heart rate 98 /min 98 /min FÉLIX ([facility] Body temperature 98.6 [degF] 98.6 [degF] FÉLIX ([facility] Diastolic blood pressure 78 mm[Hg] 78 mm[Hg] FÉLIX ([facility] Systolic blood pressure 124 mm[Hg] 124 mm[Hg] M YANIQUE ([facility] ID Date Data Source [id number] 08/15/2020 10:11:05 AM EST [facility] Name Value Range Interpretation Code Description Data Source(s) WEIGHT RECORDED 146.00 pounds 146.00 pounds [facility] Height 63 Inches 063 Inches [facility]
== END 2020-08-15 11:49 | disposition home or self-care (01) ==
LOC: M ED 10:23
DX: S70.02XA Contusion of left hip, initial encounter (principal); W18.39XA Other fall on same level, initial encounter; Y92.481 Parking lot as the place of occurrence of the external cause; I10 Essential (primary) hypertension; I48.91 Unspecified atrial fibrillation; F03.90 Unspecified dementia, unspecified severity, without behavioral disturbance, psychotic disturbance, mood disturbance, and anxiety; F33.9 Major depressive disorder, recurrent, unspecified; Z88.1 Allergy status to other antibiotic agents; Z88.2 Allergy status to sulfonamides; Z91.048 Other nonmedicinal substance allergy status; Z79.899 Other long term (current) drug therapy; Z79.01 Long term (current) use of anticoagulants

== ENCOUNTER → 2021-08-14 | Outpatient (REF) | payer MEDICARE, MEDICAID ==
[~2021-08-14] MED LIST changes: +FLUO10CA18; +METO1TAB32
[2021-08-14 09:51] LABS: THYROID STIMULATING HORMONE 1.07 uIU/ML (0.358-3.740)
[2021-08-14 10:26] LABS: TOTAL 25(OH) VITAMIN D 25.3 NG/ML (30.0-100.0)
== END ==
LOC: SKLAB8 07:00
PROVIDERS: ATTEND Neuromusculoskeletal Medicine & OMM
DX: I48.91 Unspecified atrial fibrillation (principal); F03.90 Unspecified dementia, unspecified severity, without behavioral disturbance, psychotic disturbance, mood disturbance, and anxiety; M81.0 Age-related osteoporosis without current pathological fracture

== ENCOUNTER → 2021-08-19 | Outpatient (REF) | payer MEDICARE, MEDICAID ==
[2021-08-19 09:19] LABS: THYROID STIMULATING HORMONE 1.81 uIU/ML (0.358-3.740)
[2021-08-19 10:02] LABS: TOTAL 25(OH) VITAMIN D 29.5 NG/ML (30.0-100.0)
== END ==
LOC: SKLAB8 07:00
PROVIDERS: ATTEND Neuromusculoskeletal Medicine & OMM
DX: E55.9 Vitamin D deficiency, unspecified (principal); Z79.899 Other long term (current) drug therapy

== ENCOUNTER → 2021-08-19 | Outpatient (CLI) | payer MEDICARE | LOC: M RAD 09:43 | PROVIDERS: ATTEND Neuromusculoskeletal Medicine & OMM | DX: Z53.9 Procedure and treatment not carried out, unspecified reason (principal); R22.41 Localized swelling, mass and lump, right lower limb; Z79.899 Other long term (current) drug therapy; Z79.01 Long term (current) use of anticoagulants; M81.0 Age-related osteoporosis without current pathological fracture ==

== ENCOUNTER → 2021-08-19 | Outpatient (REF) | payer MEDICARE | LOC: SKLAB8 09:03 | PROVIDERS: ATTEND Neuromusculoskeletal Medicine & OMM | DX: M25.561 Pain in right knee (principal); R22.41 Localized swelling, mass and lump, right lower limb; Z96.651 Presence of right artificial knee joint ==

== ENCOUNTER → 2021-08-20 | Outpatient (REF) | payer MEDICARE | LOC: SKLAB8 17:45 | PROVIDERS: ATTEND Nurse Practitioner Adult Health | DX: R22.42 Localized swelling, mass and lump, left lower limb (principal); Z53.9 Procedure and treatment not carried out, unspecified reason ==

== ENCOUNTER → 2021-08-20 | Outpatient (CLI) | payer MEDICARE | LOC: M RAD 19:00 | PROVIDERS: ATTEND Neuromusculoskeletal Medicine & OMM | DX: S82.831A Other fracture of upper and lower end of right fibula, initial encounter for closed fracture (principal); X58.XXXA Exposure to other specified factors, initial encounter; Y92.89 Other specified places as the place of occurrence of the external cause ==

== ENCOUNTER → 2021-08-21 | Outpatient (CLI) | payer MEDICARE | LOC: M RAD 08:06 | PROVIDERS: ATTEND Neuromusculoskeletal Medicine & OMM | DX: M19.071 Primary osteoarthritis, right ankle and foot (principal) ==

== ENCOUNTER → 2021-08-21 | Outpatient (REF) | payer MEDICARE | LOC: SKLAB8 07:46 | PROVIDERS: ATTEND Neuromusculoskeletal Medicine & OMM | DX: Z53.9 Procedure and treatment not carried out, unspecified reason (principal) ==

== ENCOUNTER 2021-11-04 20:18 | Emergency (ER) | payer MEDICARE, MEDICAID ==
[~2021-11-04] VITALS: Ht 162.6 cm; Wt 63.6 kg
[2021-11-04 21:40] LABS: BASO % 0.4 % (0.0-1.0); EOS % 0.4 % (0.0-3.0); HEMOGLOBIN 13.2 g/dl (12.0-15.5); LYMPH # 1.3 10^3/uL (1.5-5.0); LYMPH % 12.7 % (24.0-44.0); MEAN CORPUSCULAR HEMOGLOBIN 31.5 pg (27.0-33.0); MEAN CORPUSCULAR HGB CONC 32.2 g/dl (32.0-36.5); MEAN CORPUSCULAR VOLUME 97.9 fl (80.0-96.0); MONO # 0.6 10^3/uL (0.0-0.8); MONO % 5.9 % (2.0-8.0); NEUTROPHILS # 7.9 10^3/uL (1.5-8.5); PLATELET COUNT, AUTOMATED 212 10^3/uL (150-450); RED BLOOD COUNT 4.19 10^6/uL (4.00-5.40); WHITE BLOOD COUNT 9.9 10^3/uL (4.0-10.0)
[2021-11-04 21:50] LABS: INR 1.22; PROTHROMBIN TIME 15.8 SECONDS (12.7-14.5)
[2021-11-04 21:51] LABS: PARTIAL THROMBOPLASTIN TIME 30.9 SECONDS (25.9-37.0)
[2021-11-04 22:10] LABS: BLOOD UREA NITROGEN 21 MG/DL (7-18); CARBON DIOXIDE LEVEL 28 MEQ/L (21-32); CHLORIDE LEVEL 103 MEQ/L (98-107); CREATININE FOR GFR 0.76 MG/DL (0.55-1.30); GLOMERULAR FILTRATION RATE > 60.0 (>32); GLUCOSE, FASTING 116 MG/DL (70-100); POTASSIUM SERUM 4.2 MEQ/L (3.5-5.1); SODIUM LEVEL 136 MEQ/L (136-145)
[2021-11-04] MEDS ORDERED: MEMA7CAP PO (22:40)
[2021-11-04] MEDS ORDERED: MILKSUS3 PO (22:40)
[2021-11-04] MEDS ORDERED: CITRTAB18 PO (22:40)
[2021-11-04] MEDS ORDERED: BISA10SU20 PR (22:40)
[2021-11-04] MEDS ORDERED: METO1TAB32 PO (22:40)
[2021-11-04] MEDS ORDERED: FLEEENE12 PR (22:40)
[2021-11-04] MEDS ORDERED: ERGO500029 PO (22:40)
[2021-11-04] MEDS ORDERED: ELIQ2.5T PO (22:40)
[2021-11-04] MEDS ORDERED: MOM30SS PO (22:40)
[2021-11-04] MEDS ORDERED: FLUO1TAB3 PO (22:40)
[2021-11-04] MEDS ORDERED: ACET-907 PO (22:41)
[2021-11-04] MEDS ORDERED: HOME MED LIST COMPLETE! XX SCH (22:45)
[2021-11-04 22:48] VITALS: BP 159/88
== END 2021-11-04 23:05 | disposition home or self-care (01) ==
LOC: M ED 20:18
DX: S00.83XA Contusion of other part of head, initial encounter (principal); W19.XXXA Unspecified fall, initial encounter; Y92.128 Other place in nursing home as the place of occurrence of the external cause; I48.91 Unspecified atrial fibrillation; F03.90 Unspecified dementia, unspecified severity, without behavioral disturbance, psychotic disturbance, mood disturbance, and anxiety; F33.9 Major depressive disorder, recurrent, unspecified; Z79.899 Other long term (current) drug therapy; Z79.01 Long term (current) use of anticoagulants; Z88.1 Allergy status to other antibiotic agents; Z88.2 Allergy status to sulfonamides; Z91.048 Other nonmedicinal substance allergy status

== ENCOUNTER → 2022-02-05 | Outpatient (REF) | payer MEDICARE, MEDICAID ==
[~2022-02-05] MED LIST changes: +ACET-907 PO; +BISA10SU20 PR; +CITRTAB18 PO; +ERGO500029 PO; +FLEEENE12 PR; +FLUO1TAB3 PO; +MEMA7CAP PO; +METO1TAB32 PO; +MILKSUS3 PO; +MOM30SS PO
[2022-02-05 08:40] LABS: HEMATOCRIT 41.8 % (36.0-47.0); HEMOGLOBIN 13.4 g/dl (12.0-15.5); MEAN CORPUSCULAR HEMOGLOBIN 31.5 pg (27.0-33.0); MEAN CORPUSCULAR HGB CONC 32.1 g/dl (32.0-36.5); MEAN CORPUSCULAR VOLUME 98.1 fl (80.0-96.0); PLATELET COUNT, AUTOMATED 173 10^3/uL (150-450); RED BLOOD COUNT 4.26 10^6/uL (4.00-5.40); WHITE BLOOD COUNT 5.5 10^3/uL (4.0-10.0)
[2022-02-05 09:20] LABS: ALBUMIN 3.2 GM/DL (3.2-5.2); ALT/SGPT 22 U/L (12-78); BILIRUBIN,TOTAL 0.7 MG/DL (0.2-1.0); BLOOD UREA NITROGEN 16 MG/DL (7-18); CALCIUM LEVEL 9.4 MG/DL (8.8-10.2); CARBON DIOXIDE LEVEL 29 MEQ/L (21-32); CHLORIDE LEVEL 104 MEQ/L (98-107); CREATININE FOR GFR 0.74 MG/DL (0.55-1.30); GLOMERULAR FILTRATION RATE > 60.0 (>32); GLUCOSE, FASTING 83 MG/DL (70-100); SODIUM LEVEL 136 MEQ/L (136-145); TOTAL PROTEIN 6.9 GM/DL (6.4-8.2)
== END ==
LOC: SKLAB8 07:00
PROVIDERS: ATTEND Neuromusculoskeletal Medicine & OMM
DX: I48.91 Unspecified atrial fibrillation (principal); F03.90 Unspecified dementia, unspecified severity, without behavioral disturbance, psychotic disturbance, mood disturbance, and anxiety

== ENCOUNTER → 2022-04-09 | Outpatient (REF) | payer MEDICARE, MEDICAID ==
[2022-04-09 13:12] LABS: HEMATOCRIT 44.9 % (36.0-47.0); HEMOGLOBIN 14.2 g/dl (12.0-15.5); MEAN CORPUSCULAR HEMOGLOBIN 31.9 pg (27.0-33.0); MEAN CORPUSCULAR HGB CONC 31.6 g/dl (32.0-36.5); MEAN CORPUSCULAR VOLUME 100.9 fl (80.0-96.0); PLATELET COUNT, AUTOMATED 211 10^3/uL (150-450); RED BLOOD COUNT 4.45 10^6/uL (4.00-5.40); WHITE BLOOD COUNT 5.8 10^3/uL (4.0-10.0)
[2022-04-09 14:41] LABS: ALBUMIN 3.2 GM/DL (3.2-5.2); ALT/SGPT 22 U/L (12-78); BILIRUBIN,TOTAL 0.6 MG/DL (0.2-1.0); BLOOD UREA NITROGEN 14 MG/DL (7-18); CALCIUM LEVEL 9.3 MG/DL (8.8-10.2); CARBON DIOXIDE LEVEL 31 MEQ/L (21-32); CHLORIDE LEVEL 104 MEQ/L (98-107); CREATININE FOR GFR 0.81 MG/DL (0.55-1.30); GLOMERULAR FILTRATION RATE > 60.0 (>32); GLUCOSE, FASTING 130 MG/DL (70-100); POTASSIUM SERUM 3.9 MEQ/L (3.5-5.1); SODIUM LEVEL 139 MEQ/L (136-145); TOTAL PROTEIN 7.4 GM/DL (6.4-8.2)
== END ==
LOC: SKLAB8 10:00
PROVIDERS: ATTEND Nurse Practitioner Family
DX: I10 Essential (primary) hypertension (principal)

== ENCOUNTER → 2022-07-14 | Outpatient (REF) | payer MEDICARE, MEDICAID ==
[2022-07-14 15:36] LABS: APPEARANCE, URINE MANUAL CLOUDY (CLEAR); BILIRUBIN, URINE MANUAL NEGATIVE (NEGATIVE); BLOOD URINE MANUAL POSITIVE (NEGATIVE); COLOR, URINE MANUAL YELLOW (YELLOW); GLUCOSE, URINE (UA) MANUAL NEGATIVE (NEGATIVE); KETONE, URINE MANUAL NEGATIVE (NEGATIVE); LEUKOCYTE ESTERASE, URINE MAN POSITIVE (NEGATIVE); NITRITE, URINE MANUAL POSITIVE (NEGATIVE); PROTEIN, URINE MANUAL NEGATIVE (NEGATIVE); UROBILINOGEN, URINE MANUAL NORMAL (NORMAL)
[2022-07-14 15:47] LABS: WBC, URINE TNTC /hpf (0-3)
[2022-07-14 15:49] LABS: BACTERIA, URINE LARGE AMOUNT; HYALINE CAST, URINE NONE SEEN /lpf (0-1); SQUAMOUS EPITHELIAL CELL URINE SMALL AMOUNT /hpf (SMALL AMT); TRANSITIONAL EPI CELLS, URINE SMALL AMOUNT /hpf
== END ==
LOC: SKLAB8 14:08
PROVIDERS: ATTEND Internal Medicine
DX: R31.9 Hematuria, unspecified (principal); R30.0 Dysuria

== ENCOUNTER → 2022-08-28 | Outpatient (REF) | payer MEDICARE, MEDICAID ==
[2022-08-28 16:13] LABS: HEMATOCRIT 39.8 % (36.0-47.0); MEAN CORPUSCULAR HEMOGLOBIN 31.9 pg (27.0-33.0); MEAN CORPUSCULAR HGB CONC 32.7 g/dl (32.0-36.5); MEAN CORPUSCULAR VOLUME 97.5 fl (80.0-96.0); PLATELET COUNT, AUTOMATED 175 10^3/uL (150-450); RED BLOOD COUNT 4.08 10^6/uL (4.00-5.40); WHITE BLOOD COUNT 14.6 10^3/uL (4.0-10.0)
[2022-08-28 16:42] LABS: BLOOD UREA NITROGEN 24 MG/DL (9-23); CALCIUM LEVEL 8.7 MG/DL (8.3-10.6); CARBON DIOXIDE LEVEL 25 MMOL/L (20-31); CHLORIDE LEVEL 107 MMOL/L (98-107); CREATININE FOR GFR 0.67 MG/DL (0.55-1.30); GLOMERULAR FILTRATION RATE > 60.0 (>32); GLUCOSE, FASTING 115 MG/DL (74-106); POTASSIUM SERUM 3.6 MMOL/L (3.5-5.1); SODIUM LEVEL 140 MMOL/L (136-145)
== END ==
LOC: SKLAB8 15:32
PROVIDERS: ATTEND Nurse Practitioner
DX: J90 Pleural effusion, not elsewhere classified (principal); M43.06 Spondylolysis, lumbar region; Z96.643 Presence of artificial hip joint, bilateral

== ENCOUNTER → 2022-09-01 | Outpatient (REF) | payer MEDICARE, MEDICAID ==
[2022-09-01 07:14] LABS: HEMATOCRIT 33.4 % (36.0-47.0); HEMOGLOBIN 10.8 g/dl (12.0-15.5); MEAN CORPUSCULAR HGB CONC 32.3 g/dl (32.0-36.5); MEAN CORPUSCULAR VOLUME 98.8 fl (80.0-96.0); PLATELET COUNT, AUTOMATED 164 10^3/uL (150-450); RED BLOOD COUNT 3.38 10^6/uL (4.00-5.40); WHITE BLOOD COUNT 5.9 10^3/uL (4.0-10.0)
[2022-09-01 07:34] LABS: BLOOD UREA NITROGEN 23 MG/DL (9-23); CALCIUM LEVEL 8.5 MG/DL (8.3-10.6); CARBON DIOXIDE LEVEL 28 MMOL/L (20-31); CHLORIDE LEVEL 106 MMOL/L (98-107); CREATININE FOR GFR 0.66 MG/DL (0.55-1.30); GLOMERULAR FILTRATION RATE > 60.0 (>32); GLUCOSE, FASTING 86 MG/DL (74-106); POTASSIUM SERUM 3.9 MMOL/L (3.5-5.1); SODIUM LEVEL 141 MMOL/L (136-145)
== END ==
LOC: SKLAB8 07:00
PROVIDERS: ATTEND Internal Medicine
DX: D72.829 Elevated white blood cell count, unspecified (principal)

== ENCOUNTER → 2022-09-23 | Outpatient (REF) | payer MEDICARE, MEDICAID ==
[2022-09-23 12:29] LABS: APPEARANCE, URINE CLEAR (CLEAR); BACTERIA, URINE AUTO NEGATIVE (NEGATIVE); BILIRUBIN, URINE AUTO NEGATIVE (NEGATIVE); BLOOD, URINE BLOOD NEGATIVE (NEGATIVE); COLOR, URINE YELLOW (YELLOW); GLUCOSE, URINE (UA) AUTO NEGATIVE (NEGATIVE); KETONE, URINE AUTO NEGATIVE (NEGATIVE); LEUKOCYTE ESTERASE, URINE AUTO NEGATIVE (NEGATIVE); MUCUS, URINE SMALL (NEGATIVE); NITRITE, URINE AUTO NEGATIVE (NEGATIVE); PROTEIN, URINE AUTO NEGATIVE (NEGATIVE); RBC, URINE AUTO 23 /HPF (0-3); SPECIFIC GRAVITY URINE AUTO 1.023 (1.002-1.035); SQUAMOUS EPITHELIAL CELL UR AU 2 /HPF (0-6); UROBILINOGEN, URINE AUTO 0.2 mg/dL (0.0-2.0); WBC, URINE AUTO 3 /HPF (0-3)
== END ==
LOC: EEVIPCON 11:38 → SKLAB8 11:38
PROVIDERS: ATTEND Internal Medicine
DX: R30.9 Painful micturition, unspecified (principal)

== ENCOUNTER → 2022-10-07 | Outpatient (REF) | payer MEDICARE, MEDICAID | LOC: SKLAB8 07:36 | PROVIDERS: ATTEND Internal Medicine | DX: M85.842 Other specified disorders of bone density and structure, left hand (principal); M85.832 Other specified disorders of bone density and structure, left forearm ==

== ENCOUNTER → 2022-10-08 | Outpatient (REF) | payer MEDICARE, MEDICAID ==
[2022-10-08 08:43] LABS: HEMATOCRIT 40.9 % (36.0-47.0); HEMOGLOBIN 13.4 g/dl (12.0-15.5); MEAN CORPUSCULAR HEMOGLOBIN 32.1 pg (27.0-33.0); MEAN CORPUSCULAR HGB CONC 32.8 g/dl (32.0-36.5); MEAN CORPUSCULAR VOLUME 97.8 fl (80.0-96.0); PLATELET COUNT, AUTOMATED 212 10^3/uL (150-450); RED BLOOD COUNT 4.18 10^6/uL (4.00-5.40); WHITE BLOOD COUNT 6.6 10^3/uL (4.0-10.0)
[2022-10-08 09:12] LABS: ALKALINE PHOSPHATASE 70 U/L (46-116); ALT/SGPT < 9 U/L (7.0-40); AST/SGOT 15 U/L (<34); BILIRUBIN,TOTAL 0.7 MG/DL (0.3-1.2); BLOOD UREA NITROGEN 14 MG/DL (9-23); CALCIUM LEVEL 9.2 MG/DL (8.3-10.6); CARBON DIOXIDE LEVEL 31 MMOL/L (20-31); CHLORIDE LEVEL 102 MMOL/L (98-107); CREATININE FOR GFR 0.68 MG/DL (0.55-1.30); GLOMERULAR FILTRATION RATE > 60.0 (>32); GLUCOSE, FASTING 97 MG/DL (74-106); POTASSIUM SERUM 3.5 MMOL/L (3.5-5.1); SODIUM LEVEL 138 MMOL/L (136-145); TOTAL PROTEIN 7.5 G/DL (5.7-8.2)
== END ==
LOC: SKLAB8 07:00
PROVIDERS: ATTEND Internal Medicine
DX: I48.91 Unspecified atrial fibrillation (principal); F03.90 Unspecified dementia, unspecified severity, without behavioral disturbance, psychotic disturbance, mood disturbance, and anxiety

== ENCOUNTER → 2022-11-02 | Outpatient (REF) | payer MEDICAID, MEDICARE ==
[2022-11-02 14:35] LABS: HEMOGLOBIN 12.5 g/dl (12.0-15.5); MEAN CORPUSCULAR HEMOGLOBIN 30.8 pg (27.0-33.0); MEAN CORPUSCULAR HGB CONC 32.1 g/dl (32.0-36.5); MEAN CORPUSCULAR VOLUME 96.1 fl (80.0-96.0); PLATELET COUNT, AUTOMATED 128 10^3/uL (150-450); RED BLOOD COUNT 4.06 10^6/uL (4.00-5.40); WHITE BLOOD COUNT 4.2 10^3/uL (4.0-10.0)
[2022-11-02 15:01] LABS: BLOOD UREA NITROGEN 13 MG/DL (9-23); CALCIUM LEVEL 8.7 MG/DL (8.3-10.6); CARBON DIOXIDE LEVEL 30 MMOL/L (20-31); CHLORIDE LEVEL 102 MMOL/L (98-107); CREATININE FOR GFR 0.71 MG/DL (0.55-1.30); GLOMERULAR FILTRATION RATE > 60.0 (>32); GLUCOSE, FASTING 100 MG/DL (74-106); POTASSIUM SERUM 3.8 MMOL/L (3.5-5.1); SODIUM LEVEL 138 MMOL/L (136-145)
== END ==
LOC: SKLAB8 13:39
PROVIDERS: ATTEND Nurse Practitioner
DX: R53.83 Other fatigue (principal)

== ENCOUNTER → 2022-11-02 | Outpatient (REF) | payer MEDICAID, MEDICARE | LOC: SKLAB8 14:11 | PROVIDERS: ATTEND Internal Medicine | DX: Z53.8 Procedure and treatment not carried out for other reasons (principal) ==

== ENCOUNTER → 2022-11-02 | Outpatient (REF) | payer MEDICAID, MEDICARE | LOC: SKLAB8 15:14 | PROVIDERS: ATTEND Nurse Practitioner | DX: R53.83 Other fatigue (principal); Z53.8 Procedure and treatment not carried out for other reasons ==

== ENCOUNTER → 2022-11-03 | Outpatient (REF) | payer MEDICAID, MEDICARE ==
[2022-11-03 09:58] LABS: HEMATOCRIT 38.4 % (36.0-47.0); HEMOGLOBIN 12.3 g/dl (12.0-15.5); MEAN CORPUSCULAR VOLUME 96.7 fl (80.0-96.0); PLATELET COUNT, AUTOMATED 131 10^3/uL (150-450); RED BLOOD COUNT 3.97 10^6/uL (4.00-5.40); WHITE BLOOD COUNT 4.4 10^3/uL (4.0-10.0)
[2022-11-03 10:23] LABS: ALBUMIN 2.8 G/DL (3.2-5.2); ALKALINE PHOSPHATASE 63 U/L (46-116); ALT/SGPT 11 U/L (7.0-40); AST/SGOT 23 U/L (<34); BILIRUBIN,TOTAL 0.6 MG/DL (0.3-1.2); BLOOD UREA NITROGEN 14 MG/DL (9-23); CALCIUM LEVEL 8.6 MG/DL (8.3-10.6); CARBON DIOXIDE LEVEL 27 MMOL/L (20-31); CHLORIDE LEVEL 103 MMOL/L (98-107); GLOMERULAR FILTRATION RATE > 60.0 (>32); GLUCOSE, FASTING 89 MG/DL (74-106); POTASSIUM SERUM 3.7 MMOL/L (3.5-5.1); SODIUM LEVEL 140 MMOL/L (136-145)
== END ==
LOC: SKLAB8 06:20
PROVIDERS: ATTEND Internal Medicine
DX: U07.1 COVID-19 (principal)

== ENCOUNTER → 2022-11-12 | Outpatient (REF) | payer MEDICARE, MEDICAID ==
[2022-11-12 09:27] LABS: HEMATOCRIT 40.3 % (36.0-47.0); HEMOGLOBIN 12.8 g/dl (12.0-15.5); MEAN CORPUSCULAR HEMOGLOBIN 30.8 pg (27.0-33.0); MEAN CORPUSCULAR HGB CONC 31.8 g/dl (32.0-36.5); MEAN CORPUSCULAR VOLUME 97.1 fl (80.0-96.0); PLATELET COUNT, AUTOMATED 229 10^3/uL (150-450); RED BLOOD COUNT 4.15 10^6/uL (4.00-5.40)
[2022-11-12 09:56] LABS: ALKALINE PHOSPHATASE 73 U/L (46-116); ALT/SGPT 13 U/L (7.0-40); AST/SGOT 19 U/L (<34); BILIRUBIN,TOTAL 0.6 MG/DL (0.3-1.2); BLOOD UREA NITROGEN 15 MG/DL (9-23); CALCIUM LEVEL 8.9 MG/DL (8.3-10.6); CARBON DIOXIDE LEVEL 31 MMOL/L (20-31); CHLORIDE LEVEL 104 MMOL/L (98-107); CREATININE FOR GFR 0.75 MG/DL (0.55-1.30); GLOMERULAR FILTRATION RATE > 60.0 (>32); GLUCOSE, FASTING 82 MG/DL (74-106); SODIUM LEVEL 140 MMOL/L (136-145); TOTAL PROTEIN 6.2 G/DL (5.7-8.2)
== END ==
LOC: SKLAB8 07:00
PROVIDERS: ATTEND Internal Medicine
DX: U07.1 COVID-19 (principal); Z79.899 Other long term (current) drug therapy

== ENCOUNTER → 2023-03-22 | Outpatient (REF) | payer MEDICARE, MEDICAID ==
[2023-03-22 07:22] LABS: HEMOGLOBIN 12.3 g/dl (12.0-15.5); MEAN CORPUSCULAR HEMOGLOBIN 31.5 pg (27.0-33.0); MEAN CORPUSCULAR HGB CONC 32.4 g/dl (32.0-36.5); MEAN CORPUSCULAR VOLUME 97.4 fl (80.0-96.0); PLATELET COUNT, AUTOMATED 163 10^3/uL (150-450); WHITE BLOOD COUNT 5.8 10^3/uL (4.0-10.0)
== END ==
LOC: SKLAB8 03-21 07:00
PROVIDERS: ATTEND Internal Medicine
DX: R31.9 Hematuria, unspecified (principal)

== ENCOUNTER → 2023-04-08 | Outpatient (REF) | payer MEDICARE, MEDICAID ==
[2023-04-08 10:58] LABS: HEMATOCRIT 40.6 % (36.0-47.0); HEMOGLOBIN 12.9 g/dl (12.0-15.5); MEAN CORPUSCULAR HEMOGLOBIN 31.4 pg (27.0-33.0); MEAN CORPUSCULAR HGB CONC 31.8 g/dl (32.0-36.5); MEAN CORPUSCULAR VOLUME 98.8 fl (80.0-96.0); PLATELET COUNT, AUTOMATED 151 10^3/uL (150-450); RED BLOOD COUNT 4.11 10^6/uL (4.00-5.40); WHITE BLOOD COUNT 5.6 10^3/uL (4.0-10.0)
[2023-04-08 11:49] LABS: ALKALINE PHOSPHATASE 93 U/L (46-116); ALT/SGPT 19 U/L (7.0-40); AST/SGOT 20 U/L (<34); BILIRUBIN,TOTAL 0.5 MG/DL (0.3-1.2); BLOOD UREA NITROGEN 21 MG/DL (9-23); CARBON DIOXIDE LEVEL 29 MMOL/L (20-31); CHLORIDE LEVEL 106 MMOL/L (98-107); CREATININE FOR GFR 0.67 MG/DL (0.55-1.30); GLOMERULAR FILTRATION RATE > 60.0 (>32); GLUCOSE, FASTING 117 MG/DL (74-106); POTASSIUM SERUM 4.1 MMOL/L (3.5-5.1); SODIUM LEVEL 143 MMOL/L (136-145); TOTAL PROTEIN 6.6 G/DL (5.7-8.2)
== END ==
LOC: SKLAB8 06:42
PROVIDERS: ATTEND Internal Medicine
DX: I48.91 Unspecified atrial fibrillation (principal); F03.90 Unspecified dementia, unspecified severity, without behavioral disturbance, psychotic disturbance, mood disturbance, and anxiety

== ENCOUNTER → 2023-06-28 | Outpatient (REF) | payer MEDICARE, MEDICAID | LOC: SKLAB8 12:07 | PROVIDERS: ATTEND Internal Medicine | DX: R05.9 Cough, unspecified (principal) ==

== ENCOUNTER → 2023-10-07 | Outpatient (REF) | payer MEDICARE, MEDICAID ==
[~2023-10-07] MED LIST changes: -BISA10SU20 PR; +BISA10SU59 PR
[2023-10-07 11:18] LABS: HEMATOCRIT 41.1 % (36.0-47.0); HEMOGLOBIN 12.9 g/dl (12.0-15.5); MEAN CORPUSCULAR HGB CONC 31.4 g/dl (32.0-36.5); MEAN CORPUSCULAR VOLUME 98.8 fl (80.0-96.0); PLATELET COUNT, AUTOMATED 147 10^3/uL (150-450); RED BLOOD COUNT 4.16 10^6/uL (4.00-5.40)
[2023-10-07 12:59] LABS: ALBUMIN 2.9 G/DL (3.2-5.2); ALKALINE PHOSPHATASE 86 U/L (46-116); ALT/SGPT 21 U/L (7.0-40); AST/SGOT 22 U/L (<34); BILIRUBIN,TOTAL 0.4 MG/DL (0.3-1.2); BLOOD UREA NITROGEN 23 MG/DL (9-23); CALCIUM LEVEL 9.1 MG/DL (8.3-10.6); CARBON DIOXIDE LEVEL 30 MMOL/L (20-31); CHLORIDE LEVEL 107 MMOL/L (98-107); GLOMERULAR FILTRATION RATE > 60.0 (>32); GLUCOSE, FASTING 86 MG/DL (74-106); POTASSIUM SERUM 3.9 MMOL/L (3.5-5.1); SODIUM LEVEL 139 MMOL/L (136-145); TOTAL PROTEIN 6.5 G/DL (5.7-8.2)
== END ==
LOC: SKLAB8 06:39
PROVIDERS: ATTEND Internal Medicine
DX: I10 Essential (primary) hypertension (principal)

== ENCOUNTER → 2024-04-07 | Outpatient (REF) | payer MEDICARE, MEDICAID ==
[~2024-04-07] MED LIST changes: +FLUO-290; -FLUO10CA18
[2024-04-07 09:59] LABS: HEMATOCRIT 41.4 % (36.0-47.0); HEMOGLOBIN 13.1 g/dl (12.0-15.5); MEAN CORPUSCULAR HEMOGLOBIN 31.6 pg (27.0-33.0); MEAN CORPUSCULAR HGB CONC 31.6 g/dl (32.0-36.5); MEAN CORPUSCULAR VOLUME 99.8 fl (80.0-96.0); PLATELET COUNT, AUTOMATED 157 10^3/uL (150-450); RED BLOOD COUNT 4.15 10^6/uL (4.00-5.40); WHITE BLOOD COUNT 5.3 10^3/uL (4.0-10.0)
[2024-04-07 10:34] LABS: ALBUMIN 3.1 G/DL (3.2-5.2); ALKALINE PHOSPHATASE 77 U/L (46-116); ALT/SGPT 14 U/L (7.0-40); AST/SGOT 14 U/L (<34); BILIRUBIN,TOTAL 0.5 MG/DL (0.3-1.2); BLOOD UREA NITROGEN 21 MG/DL (9-23); CALCIUM LEVEL 9.6 MG/DL (8.3-10.6); CARBON DIOXIDE LEVEL 30 MMOL/L (20-31); CHLORIDE LEVEL 109 MMOL/L (98-107); CREATININE FOR GFR 0.73 MG/DL (0.55-1.30); GLOMERULAR FILTRATION RATE > 60.0 (>32); GLUCOSE, FASTING 88 MG/DL (74-106); POTASSIUM SERUM 4.2 MMOL/L (3.5-5.1); SODIUM LEVEL 143 MMOL/L (136-145); TOTAL PROTEIN 6.9 G/DL (5.7-8.2)
== END ==
LOC: SKLAB8 06:54
PROVIDERS: ATTEND Internal Medicine
DX: Z79.899 Other long term (current) drug therapy (principal)

== ENCOUNTER → 2024-06-05 | Outpatient (REF) | payer MEDICARE, MEDICAID ==
[2024-06-05 10:07] LABS: HEMATOCRIT 39.7 % (36.0-47.0); HEMOGLOBIN 12.8 g/dl (12.0-15.5); MEAN CORPUSCULAR HEMOGLOBIN 31.5 pg (27.0-33.0); MEAN CORPUSCULAR HGB CONC 32.2 g/dl (32.0-36.5); MEAN CORPUSCULAR VOLUME 97.8 fl (80.0-96.0); PLATELET COUNT, AUTOMATED 178 10^3/uL (150-450); RED BLOOD COUNT 4.06 10^6/uL (4.00-5.40); WHITE BLOOD COUNT 6.5 10^3/uL (4.0-10.0)
[2024-06-05 10:29] LABS: ALBUMIN 2.9 G/DL (3.2-5.2); ALKALINE PHOSPHATASE 74 U/L (35-104); ALT/SGPT 15 U/L (7.0-40); AST/SGOT 18 U/L (<34); BILIRUBIN,TOTAL 0.5 MG/DL (0.3-1.2); BLOOD UREA NITROGEN 21 MG/DL (9-23); CALCIUM LEVEL 9.4 MG/DL (8.3-10.6); CARBON DIOXIDE LEVEL 33 MMOL/L (20-31); CHLORIDE LEVEL 105 MMOL/L (98-107); CREATININE FOR GFR 0.78 MG/DL (0.55-1.30); GLOMERULAR FILTRATION RATE > 60.0 (>32); GLUCOSE, FASTING 108 MG/DL (74-106); POTASSIUM SERUM 3.9 MMOL/L (3.5-5.1); SODIUM LEVEL 142 MMOL/L (136-145); TOTAL PROTEIN 6.7 G/DL (5.7-8.2)
== END ==
LOC: SKLAB8 09:22
PROVIDERS: ATTEND Internal Medicine
DX: R41.82 Altered mental status, unspecified (principal)

== ENCOUNTER → 2024-10-05 | Outpatient (REF) | payer MEDICARE, MEDICAID ==
[2024-10-05 07:48] LABS: HEMATOCRIT 39.3 % (36.0-47.0); HEMOGLOBIN 12.5 g/dl (12.0-15.5); MEAN CORPUSCULAR HEMOGLOBIN 31.3 pg (27.0-33.0); MEAN CORPUSCULAR HGB CONC 31.8 g/dl (32.0-36.5); MEAN CORPUSCULAR VOLUME 98.5 fl (80.0-96.0); PLATELET COUNT, AUTOMATED 144 10^3/uL (150-450); RED BLOOD COUNT 3.99 10^6/uL (4.00-5.40)
[2024-10-05 08:08] LABS: ALBUMIN 2.6 G/DL (3.2-5.2); BILIRUBIN,TOTAL 0.4 MG/DL (0.3-1.2); CALCIUM LEVEL 8.3 MG/DL (8.3-10.6); CREATININE FOR GFR 0.62 MG/DL (0.55-1.30); GLOMERULAR FILTRATION RATE 85.6 (>32); POTASSIUM SERUM 4.3 MMOL/L (3.5-5.1)
== END ==
LOC: SKLAB8 07:00
PROVIDERS: ATTEND Internal Medicine
DX: I48.91 Unspecified atrial fibrillation (principal); F03.90 Unspecified dementia, unspecified severity, without behavioral disturbance, psychotic disturbance, mood disturbance, and anxiety

== ENCOUNTER 2025-03-25 07:34 | Emergency (ER) | payer MEDICARE, MEDICAID ==
[2025-03-25] MEDS: LIDOCAINE 2% W/EPINEPHrine 20 ML VIAL **PRES FREE INJ ONE (07:50)
[2025-03-25 08:06] VITALS: TEMP 96.9
[2025-03-25] MEDS: TETANUS/DIPHTH/ACEL. PERTUSSIS 0.5 ML SYR IM.IMMUN ONE (08:24)
[2025-03-25 08:38] LABS: BASO # 0.0 10^3/uL (0.0-0.2); BASO % 0.4 % (0.0-1.0); EOS # 0.0 10^3/uL (0.0-0.5); EOS % 0.5 % (0.0-3.0); LYMPH # 1.5 10^3/uL (1.5-5.0); LYMPH % 18.4 % (24.0-44.0); MONO # 0.6 10^3/uL (0.0-0.8); MONO % 7.1 % (2.0-8.0); NEUTROPHILS # 5.9 10^3/uL (1.5-8.5); NEUTROPHILS % 72.7 % (36.0-66.0)
[2025-03-25 08:52] LABS: INR 1.16
[2025-03-25 08:56] LABS: ALT/SGPT 17.0 U/L (7.0-40); AST/SGOT 29.0 U/L (<34); CALCIUM LEVEL 9.1 MG/DL (8.3-10.6); CARBON DIOXIDE LEVEL 26.0 MMOL/L (20-31); CHLORIDE LEVEL 104.0 MMOL/L (98-107); CREATININE FOR GFR 0.68 MG/DL (0.55-1.30); GLOMERULAR FILTRATION RATE 83.2 (>32); POTASSIUM SERUM 4.2 MMOL/L (3.5-5.1); SODIUM LEVEL 137.0 MMOL/L (136-145)
[2025-03-25 10:30] VITALS: BP 153/94; O2SAT 98
== END 2025-03-25 11:18 | disposition home or self-care (01) ==
LOC: M ED 07:34
DX: S01.81XA Laceration without foreign body of other part of head, initial encounter (principal); W19.XXXA Unspecified fall, initial encounter; Y92.9 Unspecified place or not applicable; Y93.9 Activity, unspecified; Y99.9 Unspecified external cause status; K59.00 Constipation, unspecified; I48.91 Unspecified atrial fibrillation; K21.9 Gastro-esophageal reflux disease without esophagitis; F03.90 Unspecified dementia, unspecified severity, without behavioral disturbance, psychotic disturbance, mood disturbance, and anxiety; F41.9 Anxiety disorder, unspecified; F32.A Depression, unspecified; Z96.643 Presence of artificial hip joint, bilateral

== ENCOUNTER → 2025-04-12 | Outpatient (REF) | payer MEDICARE, MEDICAID ==
[2025-04-12 10:14] LABS: PLATELET COUNT, AUTOMATED 195 10^3/uL (150-450)
[2025-04-12 10:43] LABS: ALT/SGPT 16.0 U/L (7.0-40); AST/SGOT 20.0 U/L (<34); CALCIUM LEVEL 9.0 MG/DL (8.3-10.6); CARBON DIOXIDE LEVEL 26.0 MMOL/L (20-31); CHLORIDE LEVEL 106.0 MMOL/L (98-107); CREATININE FOR GFR 0.68 MG/DL (0.55-1.30); GLOMERULAR FILTRATION RATE 83.2 (>32); POTASSIUM SERUM 4.2 MMOL/L (3.5-5.1); SODIUM LEVEL 144.0 MMOL/L (136-145)
== END ==
LOC: SKLAB8 07:00
PROVIDERS: ATTEND Family Medicine
DX: S01.81XD Laceration without foreign body of other part of head, subsequent encounter (principal)